=== PATIENT | male | born 1960 | race Caucasian/White ===

== ENCOUNTER → 2025-04-05 16:37 | Outpatient (REF) | payer OTHER, SELFPAY | LOC: RAD 16:37 | PROVIDERS: ATTENDING PHYSICIAN Surgery Vascular Surgery; FAMILY PHYSICIAN Student in an Organized Health Care Education/Training Program | DX: I73.9 Peripheral vascular disease, unspecified (principal) | CPT/HCPCS: 75635; Q9967 ==

== ENCOUNTER → 2025-04-08 14:03 | Outpatient (REF) | payer OTHER, SELFPAY | LOC: RAD 14:03 | PROVIDERS: ATTENDING PHYSICIAN Surgery Vascular Surgery; FAMILY PHYSICIAN Student in an Organized Health Care Education/Training Program | DX: I73.9 Peripheral vascular disease, unspecified (principal) | CPT/HCPCS: 93922 ==

== ENCOUNTER 2025-05-24 09:15 | Inpatient (IN) | payer OTHER, SELFPAY ==
[2025-05-20 09:30] VITALS: BMI 33.5
[2025-05-20 09:51] LABS: Hematocrit 51.8 % (39.0-52.0); Hemoglobin 17.2 g/dL (13.0-18.0); Mean Corp Hgb Conc. 33.2 g/dL (33.0-37.0); Mean Corpuscular Volume 94.4 fL (80.0-94.0); Nucleated Red Blood Cells % 0 % (-); Platelet Count 180 10^3/uL (130-400); Red Cell Dist. Width 13.9 % (11.5-14.5)
[2025-05-20 10:01] LABS: INR 0.95; PT 13.0 Sec (11.4-14.6)
[2025-05-20 10:03] LABS: APTT 30.7 Sec (23.4-35.0)
[2025-05-20 11:21] LABS: Blood Urea Nitrogen 16 mg/dl (9-20); Calcium 9.8 mg/dl (8.4-10.2); Carbon Dioxide 31 mmol/L (22-30); Chloride 105 mmol/L (98-107); Estimated Creatinine Clearance 124 ml/min; Glucose 105 mg/dl (70-99); Potassium 4.8 mmol/L (3.5-5.1); Sodium 141 mmol/L (135-145); eGFR > 60.00
[2025-05-24] VITALS (7 sets, daily range): BP systolic 128–154; BP diastolic 74–98; BMI 33.5; BMI 34.0
[2025-05-24] MEDS: PERIDEX 0.12% ORAL RINSE 15 ML PO (10:15)
[2025-05-24] MEDS: BACTROBAN NASAL 1 GRAM NASAL (10:15)
[2025-05-24] MEDS: NSS 500 IV (10:16)
--- NOTE | 2025-05-24 11:47 | W.SUR.PREOP ---
Pre-Operative Surgical Note
-
I have examined this patient prior to the performance of the scheduled procedure.
The patient's condition is unchanged from the time of the current History and
Physical and the patient is able to undergo the scheduled procedure.
[2025-05-24 15:59] LABS: ACT-LR - POC 353 Seconds (116-155)
[2025-05-24 16:55] LABS: ACT-LR - POC 237 Seconds (116-155)
[2025-05-24 18:50] LABS: Hematocrit 47.7 % (39.0-52.0); Hemoglobin 15.6 g/dL (13.0-18.0); Mean Corp Hgb Conc. 32.7 g/dL (33.0-37.0); Mean Corpuscular Volume 94.6 fL (80.0-94.0); Platelet Count 166 10^3/uL (130-400); Red Cell Dist. Width 13.6 % (11.5-14.5)
[2025-05-24 19:02] LABS: INR 0.95; PT 13.0 Sec (11.4-14.6)
[2025-05-24 19:03] LABS: APTT 31.4 Sec (23.4-35.0)
[2025-05-24 19:16] LABS: Blood Urea Nitrogen 14 mg/dl (9-20); Calcium 8.8 mg/dl (8.4-10.2); Carbon Dioxide 29 mmol/L (22-30); Chloride 106 mmol/L (98-107); Estimated Creatinine Clearance 124 ml/min; Glucose 133 mg/dl (70-99); Sodium 139 mmol/L (135-145); eGFR > 60.00
[2025-05-24 19:40] LABS: Potassium 4.8 mmol/L (3.5-5.1)
--- NOTE | 2025-05-24 19:50 | PTCARENOTE ---
Rec'd pt from PACU via bed on o2 4 liters nc & monitor, oriented to ICU routine, CHG bath done on adm, falt affect, cooperative, MSAS-0, B Linn, MAP MOUNTER aware of pts last drink on Sat; SR, R rad maliha w/ good wave form, flushes well,
zeroed, approx w/ cuff, Left fem ELODIA dressing intact, Left thigh TAYLOR A & TAYLOR B w/ sm amt ses drainage, TAYLOR A dsg w/ sm amt drainage noted on dsg- circled, bilat feet warm, good sensation, left pedal weakly palpable, other distal pulses normal, skin
warm/dry, O2 4 liters nc, sat 92, lungs decr,instructed on IS- reaches 1000, + bowel sounds, abd obese, round,no n/v, venu h20, thermister blum draining yellow urine
--- NOTE | 2025-05-24 19:53 | OR.RPT ---
Operative Report
Operative Report
Date of Operation: 05/24/2025
Pre Op Diagnosis:
1. [place] artery atherosclerosis with ischemic rest pain left lower extremity
2. Calcified peripheral arterial occlusive disease
3. Severe oxygen dependent COPD
Post Op Diagnosis:
1. [place] artery atherosclerosis with ischemic rest pain left lower extremity
2. Calcified peripheral arterial occlusive disease
3. Severe oxygen dependent COPD
Procedure:
1. Left common femoral artery and proximal superficial femoral artery endarterectomy with patch angioplasty using bovine pericardium
2. Intravascular lithotripsy to calcified left popliteal artery stenosis (6 mm x 80 mm E8)
3. Balloon angioplasty and drug-eluting stent placement to left popliteal artery (6 mm x 140 mm Zilver PTX; postdilated with 6 mm angioplasty balloon)
4. Rotational muscle flap using left sartorius muscle
Surgeon: Fabricio Andersen III, MD
Electrical Instrumentation Technician: Kin Rios MD, PGY5
Anesthesia: General
Complications: None
Estimated Blood Loss: 50 cc
History and Indications for Procedure: 64-year-old male with ischemic rest pain involving his left lower extremity. Cross-sectional imaging preoperatively demonstrated heavily calcified femoral occlusive disease.
Procedure in Detail: Albino Yu was correctly identified and placed supine on the operating table. After adequate induction of anesthesia, the abdomen, pelvis, and bilateral groins to the thighs were prepped and draped in usual sterile
fashion. Preoperative antibiotics were administered. A time-out procedure was performed with the nursing and anesthesia staff confirming the patient's identity as well as the nature and laterality of the procedure. I made a vertical incision over
the left groin. Electrocautery was used to dissect the subcutaneous tissue. Lymphatics were ligated and divided between ties and metal clips. Through a combination of sharp dissection and electrocautery, I identified the common femoral artery.
The common femoral artery was encircled with a vessel loop underneath the inguinal ligament. Dissection was then continued distally. The femoral bifurcation was identified as well as the proximal superficial femoral artery and profunda femoral
artery. The proximal superficial femoral artery was encircled with a vessel loop at the soft spot beyond the calcified plaque. The proximal superficial femoral artery and profunda femoral artery were encircled with vessel loops.
The patient was systemically heparinized. After confirming therapeutic ACT we proceeded with the endarterectomy. The proximal and distal vessel loops were secured. A Derra clamp was placed on the distal external iliac artery. An 11-blade and
Hargrove scissors were used to make and extend the arteriotomy on the common femoral artery. The arteriotomy was carried distally to the superficial femoral artery beyond the calcified plaque. The arteriotomy was extended up to the proximal common
femoral artery. An endarterectomy was performed in the standard fashion with a [place] elevator. The proximal extent of the plaque was transected and then additional elements of plaque were pulled out from the distal external iliac artery using
forceps and clamps. Plaque was everted from the origin of the profunda femoral artery. Excellent backbleeding from the profunda femoral artery was identified and the artery was flushed with heparinized saline solution. The distal end of the
plaque feathered at the proximal superficial femoral artery. A slight distal intimal flap was tacked down with a single interrupted 6-0 Prolene suture. The endarterectomy plane was then irrigated with heparinized saline solution and any loose
fronds of tissue were removed. I brought onto the field a precut 1 cm x 14 cm piece of bovine pericardium and this was used as a patch. The patch was then sewn in place using a running 5-0 Prolene suture. Prior to the completion of the
anastomosis, we allowed the arteries to forward and backbleed. The area under the patch was flushed with heparinized saline solution to remove any thrombus or debris. The anastomosis was then completed. The proximal clamp was removed and distal
vessel loops were then released. There was an excellent pulse that was easily palpable within the common femoral artery, proximal profunda femoral artery and proximal superficial femoral artery. The suture line was closely inspected for hemostasis
which was achieved.
I then punctured the patch in an antegrade fashion with a micropuncture needle. The microwire was advanced into the superficial femoral artery. A 6 Vietnamese sheath was then placed over the Bentson wire. An arteriogram was performed demonstrating
patent superficial femoral artery. There was a highly calcified plaque in the above-knee popliteal artery and focally behind the knee popliteal artery contributing to significant stenoses. I was able to cross both of these with a Glidewire and
Quickcross under roadmap guidance. The wire was then exchanged out for a 0.014 wire. Due to the heavily calcified nature of the popliteal artery disease and in an effort to modify the calcium to achieve maximum luminal gain with endovascular
intervention I elected to proceed with intravascular lithotripsy. A 6 mm x 80 mm Shockwave balloon was placed across the stenosis under roadmap guidance. Alternating rounds of lithotripsy pulse delivery at sub-nominal pressure and angioplasty at
nominal pressure was performed across the stenosis. In between rounds of pulse delivery and angioplasty the balloon was deflated and repositioned under roadmap guidance. All 400 pulses were delivered. Subsequent arteriogram demonstrated a
significantly improved result. Some areas of stenosis remained. I then brought into position a 6 mm x 140 mm Zilver PTX stent. This was positioned in the desired location in the popliteal artery and deployed. The stent was postdilated with a 6
mm angioplasty balloon. Completion arteriogram demonstrated an excellent technical result with a widely patent superficial femoral artery and popliteal artery stent. There was brisk flow through the stent. No significant residual stenosis was
identified. Three-vessel tibial artery runoff was identified distally.
Satisfied with this result we then concluded the endovascular portion of the procedure. The 6 Vietnamese sheath was removed from the patch. The puncture site was repaired primarily with a 5-0 Prolene suture. The suture line was then closely inspected
for hemostasis which was achieved. Protamine was administered.
I then identified the sartorius muscle within the wound bed. This was carefully exposed using electrocautery and sharp dissection. We exposed the muscle back to its insertion site on the anterior superior iliac spine. The muscle was healthy in
appearance. Using electrocautery I disconnected the muscle from its insertion at the ASIS. The muscle was then gently rotated over to cover the patch repair of the common femoral artery and superficial femoral artery. The wound was irrigated with
copious amounts of warm saline solution. Hemostasis was achieved in the wound bed. The sartorius muscle was then tacked down circumferentially to the surrounding tissue using interrupted 3-0 Vicryl sutures in a horizontal mattress fashion. A
Suresh drain was left in the sartorius bed and was brought out laterally on the thigh. This was secured in place of the skin with a nylon suture. An additional Suresh drain was left on top of the sartorius muscle and brought out through a more
medial thigh stab incision. This was secured in place at the skin level with a nylon suture. The wound was then closed in multiple layers and sterile dressings were applied.
The patient tolerated the procedure well and was taken to the recovery room in good condition. He had palpable pedal pulses in the left foot at the conclusion of the case.
Attestation: I was present and responsible for the entire procedure
Signed:
Fabricio Andersen III, MD
Vascular Surgery
[facility]
[2025-05-24 19:54] LABS: ALT (SGPT) 29 U/L (0-50); AST (SGOT) 33 U/L (17-59); Albumin 3.9 g/dl (3.5-5.0); Alkaline Phosphatase 82 U/L (38-126); Magnesium 2.1 mg/dl (1.6-2.3); Total Protein 6.5 g/dl (6.3-8.2)
[2025-05-24 20:06] LABS: Glucose - Point of Care 115 mg/dl (70-99)
[2025-05-24] MEDS: VENTOLIN NEBULES 2.5 MG INH (20:13)
[2025-05-24] MEDS: SYMBICORT 160/4.5 MCG INHALER 2 PUFF INH (20:13)
[2025-05-24] MEDS: NSS 1000 IV (20:25)
[2025-05-24] MEDS: PLAVIX 300 MG PO (20:26)
[2025-05-24] MEDS: LOW STRENGTH ASPIRIN 81 MG PO (20:26)
[2025-05-24] MEDS: INDERAL 10 MG PO (20:26)
[2025-05-24] MEDS: ROXICODONE 5 MG PO (21:22)
[2025-05-24] MEDS: SEROQUEL 50 MG PO (21:22)
--- NOTE | 2025-05-24 21:23 | PTCARENOTE ---
oxycodon 5mg po given for lwft groin pain
[2025-05-24] MEDS: HEPARIN 5000 UNITS SC (23:37)
[2025-05-25] VITALS (16 sets, daily range): BP systolic 104–127; BP diastolic 67–81; BMI 34.3
--- NOTE | 2025-05-25 | PTCARENOTE ---
sys reviewed, changes noted, TAYLOR drainage sanguinous
[2025-05-25 03:32] LABS: Hematocrit 43.3 % (39.0-52.0); Hemoglobin 14.3 g/dL (13.0-18.0); Mean Corp Hgb Conc. 33.0 g/dL (33.0-37.0); Mean Corpuscular Volume 93.3 fL (80.0-94.0); Platelet Count 150 10^3/uL (130-400); Red Cell Dist. Width 13.4 % (11.5-14.5)
[2025-05-25 03:43] LABS: INR 0.97; PT 13.2 Sec (11.4-14.6)
[2025-05-25 03:44] LABS: APTT 29.2 Sec (23.4-35.0)
[2025-05-25 03:52] LABS: Blood Urea Nitrogen 14 mg/dl (9-20); Calcium 8.3 mg/dl (8.4-10.2); Carbon Dioxide 29 mmol/L (22-30); Chloride 108 mmol/L (98-107); Estimated Creatinine Clearance > 125 ml/min; Glucose 117 mg/dl (70-99); Potassium 4.4 mmol/L (3.5-5.1); Sodium 141 mmol/L (135-145); eGFR > 60.00
[2025-05-25] MEDS: ROXICODONE 5 MG PO ×4 (04:03→23:56)
--- NOTE | 2025-05-25 04:04 | PTCARENOTE ---
sys reviewed, neuro vasc check intact, TAYLOR- B site w/ sang drainage on dsg, oxy 5 mg po given for left groin pain
[2025-05-25] MEDS: NSS 1000 IV (07:34)
[2025-05-25] MEDS: SYMBICORT 160/4.5 MCG INHALER 2 PUFF INH ×2 (07:36→20:17)
[2025-05-25] MEDS: VENTOLIN NEBULES 2.5 MG INH (07:36)
[2025-05-25] MEDS: SPIRIVA RESPIMAT 2.5 MCG 2 PUFF INH (07:36)
--- NOTE | 2025-05-25 07:37 | CON.INTV ---
Consultation
Consultation Request
Date/Time Consultation Requested: 05/25/2025-7 AM
Date/Time Consultation Performed: 05/25/2025-7:30 AM
Requesting Provider: Hospitalist
Performing Provider: Dr. Guillaume
Reason for Consultation: Postoperative critical care management
Medical History
-
Chief Complaint: PAD
History of Present Illness:
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
05/25/2025.Patient is seen postoperatively. He denies any shortness of breath at rest, chest pain, chest tightness, productive cough, abdominal pain, and his legs feel much improved. He has good pulses and according to his the color is never
looked better. Uses oxygen at home including a portable oxygen concentrator.
Past Medical History
Past Medical History: None (COPD-stage IV on chronic oxygen-Dr. Carbajal. PAD. Pulm hypertension. Atrial fibrillation. Alcohol use disorder.)
Social History
Tobacco: Former Smoker ([id number] quit 03/2025)
Alcohol: Chronic Alcoholic
Drug: None
Personal:
Living: With Family
Occupational Exposures: No known asbestos exposure
Environmental Exposures: No known tuberculosis exposure
Family History
Family History: Reviewed & Not Pertinent (Father-CAD and COPD. Mother colon cancer)
Allergies / Home Medications
Allergies
Allergy/AdvReac Type Severity Reaction Status Date / Time
No Known Allergies Allergy Unverified 05/20/25 08:07
Home Medications
�Medication �Instructions �Recorded �Confirmed �Last Taken �Type
albuterol sulfate 90 mcg/actuation 2 inh inhalation Q4H PRN SOB 05/19/25 05/24/25 05/23/25 14:00 History
aerosol inhaler
apixaban 5 mg tablet (Eliquis) 5 mg PO BID Blood Clot 05/19/25 05/24/25 05/21/25 20:00 History
Prevention/Tx
budesonide 160 mcg-glycopyr 9 2 inh inhalation BID COPD 05/19/25 05/24/25 05/23/25 History
mcg-formot 4.8 mcg/actuation HFA
inhaler (Breztri Aerosphere)
cariprazine 1.5 mg capsule 1.5 mg PO HS Mental Health/Anxiety 05/19/25 05/20/25 05/23/25 20:00 History
(Vraylar)
ensifentrine 3 mg/2.5 mL 2.5 ml inhalation BID COPD 05/19/25 05/24/25 05/24/25 06:00 History
suspension for nebulization
(Ohtuvayre)
folic acid 1 mg tablet 1 mg PO DAILY Supplement 05/19/25 05/24/25 05/21/25 09:00 History
furosemide 20 mg tablet 20 mg PO DAILY Fluid 05/19/25 05/24/25 05/23/25 09:00 History
Retention/Swelling
multivitamin 1 tab PO DAILY Supplement 05/19/25 05/24/25 05/21/25 09:00 History
quetiapine 50 mg tablet 50 mg PO HS Mental Health/Anxiety 05/19/25 05/24/25 05/23/25 20:00 History
venlafaxine 150 mg 150 mg PO DAILY Mental 05/19/25 05/24/25 05/24/25 06:00 History
capsule,extended release 24 hr Health/Anxiety
albuterol sulfate 2.5 mg/3 mL 2.5 mg inhalation BID COPD 05/20/25 05/24/25 05/24/25 06:00 History
(0.083 %) solution for nebulization
cholecalciferol (vitamin D3) 50 50 mcg PO DAILY Supplement 05/20/25 05/24/25 05/21/25 09:00 History
mcg (2,000 unit) capsule (Vitamin
D3)
pravastatin 10 mg tablet 10 mg PO DAILY High Cholesterol 05/20/25 05/20/25 05/24/25 06:00 History
propranolol 10 mg tablet 10 mg PO BID Tremors 05/20/25 05/20/25 05/23/25 09:00 History
thiamine HCl (vitamin B1) 100 mg 100 mg PO DAILY Supplement 05/20/25 05/24/25 05/21/25 09:00 History
tablet
Cannabis - Medical 1 puff inhalation HSPRN PRN 05/24/25 05/24/25 05/23/25 20:00 History
sleep/anxiety
Review of Systems
-
Unable to Obtain full review of systems at this time due to: Other (Per HPI)
Vitals / Labs / Diagnostic Testing
Vital Signs
Temp Pulse Resp BP Pulse Ox
97.4 F 55 15 127/81 96
05/25/25 07:21 05/25/25 06:00 05/25/25 06:00 05/25/25 00:00 05/25/25 06:00
Lab Data
05/25/25 03:22
05/25/25 03:22
Laboratory Results
05/24/25 05/25/25
18:42 03:22
PT 13.0 13.2
INR 0.95 0.97
APTT 31.4 29.2
Diagnostic Testing:
Physical Exam
-
Exam:
Well-nourished and well-developed in no apparent distress
HEENT-atraumatic, normocephalic
Neck-supple, no JVD, no bruit
Heart-regular rate and rhythm-no murmurs, rubs or gallops
Chest with diminished breath sounds, prolonged expiratory time, no wheezes or crackles
Back without tenderness
Abdomen-soft, nontender, nondistended, no hepatosplenomegaly
Extremities-no cyanosis, clubbing, edema and good peripheral pulses
Integument-intact, no rashes, lesions or ecchymosis
Neurology-alert and oriented, nonfocal motor and sensory exam
Assessment
-
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
05/25/2025.Patient is seen postoperatively.
Severe symptomatic PAD
Status post-Left common femoral artery and proximal superficial femoral artery endarterectomy with patch angioplasty, intravascular lithotripsy to left popliteal artery stenosis, balloon angioplasty and drug-eluting stent to left popliteal artery,
rotational muscle flap using left sartorius muscle-Dr. Andersen 05/24/2025
Mild hyperglycemia
Conditions present prior to admission:
COPD-stage IV on chronic oxygen-Dr. Carbajal.
PAD.
Pulm hypertension.
Atrial fibrillation.
Alcohol use disorder.
Plan
Postoperative surgical intensive care unit monitoring
Supplemental oxygen as needed
Incentive spirometry
Aspiration precautions
Neuro and vascular checks per protocol
Monitor blood pressure/perfusion pressures and pulses closely
Vascular surgery following-correspondence and operative notes reviewed
Follow MSAS
Alcohol withdrawal treatment protocol if needed
DVT prophylaxis
Early nutrition
Early mobilization
Above recommendations were reviewed with who was present during interview and exam.
The patient has advanced COPD, quit smoking 2 months ago, follows Dr. Carbajal and maintained on Breztri, Albuterol, Ohtuvayre and O2- Follow-up as an outpatient
Critical care statement: A total of 55 minutes of critical care time was provided for this patient today. This includes management of unstable vital signs, evaluation of the patient at bedside, reviewing the patient's pertinent medical records
including radiographs, microbiology, laboratory evaluations, and discussion with primary team, consultants, pharmacy, nutrition, physical therapy, case management, charge nurse, critical care nursing, and respiratory therapy.
Diagnostic data:
Chest x-ray 05/24/2025-NAD
[2025-05-25] MEDS: EFFEXOR XR 150 MG PO (07:44)
[2025-05-25] MEDS: VITAMIN D3 (cholecalciferol) 50 MCG PO (07:45)
[2025-05-25] MEDS: THERAGRAN 1 TABLET PO (07:45)
[2025-05-25] MEDS: LOW STRENGTH ASPIRIN 81 MG PO (07:45)
[2025-05-25] MEDS: VITAMIN B1 100 MG PO (07:45)
[2025-05-25] MEDS: INDERAL 10 MG PO ×2 (07:45→19:35)
[2025-05-25] MEDS: HEPARIN 5000 UNITS SC ×3 (07:46→23:36)
[2025-05-25] MEDS: PLAVIX 75 MG PO (07:46)
--- NOTE | 2025-05-25 07:54 | W.PN.VS ---
Addendum entered and electronically signed by Fabricio Andersen III, MD 05/25/25 13:26:
This patient was seen and examined in collaboration with THOMAS Noriega. I agree with the history and physical exam as well as the assessment and plan.
Signed:
Fabricio Andersen III, MD
Vascular Surgery
[facility]
Original Note:
Today's Communication / Plan
-
Seen and assessed with Dr. Andersen
Assessment/Plan
-
Postop day 1 Left common femoral artery and proximal superficial femoral artery endarterectomy with patch angioplasty using bovine pericardium
Intravascular lithotripsy to calcified left popliteal artery stenosis (6 mm x 80 mm E8)
Balloon angioplasty and drug-eluting stent placement to left popliteal artery (6 mm x 140 mm Zilver PTX; postdilated with 6 mm angioplasty balloon)
Rotational muscle flap using left sartorius muscle
Plan:
DC A-line
Keep Andersen catheter
DC IV fluids
Continue bedrest for 48 hours
Hold Eliquis for now
We will change dressing tomorrow
Continue TAYLOR drains today
Subjective Data
-
Date of Service: May 25, 2025
Patient seen at bedside this a.m. with his at bedside. Patient currently receiving scheduled breathing treatment. Patient states his breathing feels to be at his baseline. No complaints at this time. No events overnight.
Objective Data
-
Vital Signs
Temp Pulse Resp BP Pulse Ox
97.4 F 57 14 127/81 97
05/25/25 07:21 05/25/25 07:40 05/25/25 07:40 05/25/25 00:00 05/25/25 07:40
Intake and Output
05/24/25 05/25/25 05/26/25
06:59 06:59 06:59
Intake Total 1160 / 1160
Output Total 672 / 672
Balance 488 / 488
Intake:
Oral fluids 360 / 360
IV fluids (Total) 800 / 800
Nss 1,000 ml @ 80 mls/hr IV . 800 / 800
[id number] SOPHY Rx#:[id number]
Output:
Drain Output (Total)
Left Upper Leg Kiko-Ferreira A
Left Upper Leg Kiko-Ferreira B
Urine, Andersen 650 / 650
Lab Results
05/25/25 03:22
05/25/25 03:22
Calcium 8.3 mg/dl (8.4-10.2) L 05/25/25 03:22
Phosphorus 3.0 mg/dl (2.5-4.5) 05/24/25 18:42
Magnesium 2.1 mg/dl (1.6-2.3) 05/24/25 18:42
Total Bilirubin 1.2 mg/dl (0.2-1.3) 05/24/25 18:42
AST 33 U/L (17-59) 05/24/25 18:42
ALT 29 U/L (0-50) 05/24/25 18:42
Alkaline Phosphatase 82 U/L (38-126) 05/24/25 18:42
Total Protein 6.5 g/dl (6.3-8.2) 05/24/25 18:42
Albumin 3.9 g/dl (3.5-5.0) 05/24/25 18:42
Physical Exam
-
AO x 3
No tachypnea on 2 L nasal cannula
No tachycardia
Abdomen soft
Groin site clean, dry, intact, soft, flat
TAYLOR drains intact with minimal output
Foot warm and pink with palpable pulse
--- NOTE | 2025-05-25 08:00 | PTCARENOTE ---
Received patient from overnight stocker. Dr. Blum at team are in to assess patient. Patient is flat, AAOx4, present at bedside. Patient to not sit up further than 30%, is to remain bedrest till tomorrow afternoon and will discontinue the A-line
and IV fluids. He is sinus hannah/sinus rhythm on monitor. Has palpable pulses Was on 4L nasal cannula, now on 2L. 94-95%. Patient had some scattered rhonchi and generally diminished, quit smoking 2 months ago. He is ordered low cholesterol diet,
and blum catheter to remain today. Left leg incision intact, has two TAYLOR drains that have drainage on dressings, unchanged from prior shift. Will review orders, patient and have no questions and verbalize understanding of plan of care.
[2025-05-25] MEDS: TYLENOL 650 MG PO (09:12)
--- NOTE | 2025-05-25 12:41 | CM ---
Initial assessment completed with patient who lives with his in a 3 story plus basement duplex home with B/B on 2nd and 8 steps to enter. 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 He does not drive. Has a W/CH and RW in the home but
does not use. Does use O2 continuously @ 2L. Has concentrator, Inogen and Large tank. No in-home services. Does have a HC-POA. No service. PCP is Dr. Steven Bolton and Pharmacy is [facility] in [place]. Discharge POC: requesting PT consult.
13 steps to 2nd floor. No bathroom on 1st.
MD requesting CM consult for ETOH use/abuse. Discussed with patient. He said he is not working and only drinks 5-6 beers per day. He does not get intoxicated. He does not feel he needs the services of [facility]. He is aware that [facility] is
available if he changes his mind. Expressed understanding.
--- NOTE | 2025-05-25 12:51 | PTCARENOTE ---
drainage was noted on left upper leg. mistyer texted vascular team. Reinforced dressing. ELODIA drain still blinking green. neurovascular checks remain unchanged, WNL 5mg Oxycodone mg given for pain, CHG bath completed.
[2025-05-25] MEDS: NON-FORMULARY ITEM INH ×2 (13:55)
[2025-05-25] MEDS: NON-FORMULARY ITEM PO (14:06)
[2025-05-25] MEDS: PRAVACHOL 10 MG PO (19:36)
[2025-05-25] MEDS: ATIVAN 1 MG PO (19:43)
--- NOTE | 2025-05-25 19:45 | PTCARENOTE ---
Rec'd pt resting in bed, on bedrest, flat affect, notable tremors & diaphoresis, MSAS 5- ativan 1mg po given at 1945; oxycodone 5mg po given at 1935 for left groin pain, MESSER, cooperative, SR/ Sinus hannah, bp stable, + pulses, skin warm/dry, Left fem
ELODIA dsg intact, TAYLOR A & B w/ sang fluid, stripped per order, O2 2 liters nc, lungs decr in bases, enc to use IS- reaches 1000, sat 94, + bowel sounds, no bm, abd obese, round, no n/v venu diet, thermister blum draining yellow uirne
[2025-05-25] MEDS: VENTOLIN NEBULES INH (20:13)
[2025-05-25] MEDS: NON-FORMULARY ITEM 2.5 ML INH (20:16)
[2025-05-25] MEDS: SEROQUEL 50 MG PO (21:41)
[2025-05-25] MEDS: NON-FORMULARY ITEM 1.5 MG PO (21:41)
[2025-05-26] VITALS (24 sets, daily range): BP systolic 102–130; BP diastolic 68–95; BMI 34.2
--- NOTE | 2025-05-26 00:10 | PTCARENOTE ---
sys reviewed, changes noted, inc of mod amt stool, tonya care given, CHG bath done, pulses unch, Oxycodone 5mg po given for pain
[2025-05-26 03:20] LABS: Hematocrit 41.5 % (39.0-52.0); Hemoglobin 13.7 g/dL (13.0-18.0); Mean Corp Hgb Conc. 33.0 g/dL (33.0-37.0); Mean Corpuscular Volume 94.5 fL (80.0-94.0); Platelet Count 145 10^3/uL (130-400); Red Cell Dist. Width 13.4 % (11.5-14.5)
[2025-05-26 03:42] LABS: Blood Urea Nitrogen 13 mg/dl (9-20); Calcium 8.8 mg/dl (8.4-10.2); Carbon Dioxide 32 mmol/L (22-30); Chloride 109 mmol/L (98-107); Estimated Creatinine Clearance > 125 ml/min; Glucose 92 mg/dl (70-99); Potassium 3.9 mmol/L (3.5-5.1); Sodium 139 mmol/L (135-145); eGFR > 60.00
[2025-05-26] MEDS: ROXICODONE 5 MG PO ×4 (03:46→19:43)
--- NOTE | 2025-05-26 03:47 | PTCARENOTE ---
sys reviewed, oxycodone 5mg po given for pain
--- NOTE | 2025-05-26 05:00 | W.PN.UPDATE ---
Addendum entered and electronically signed by THOMAS Shanks 05/26/25 05:47:
DELETE NOTED Wrong Patient entry�
Original Note:
Update Note
Progress Note Update
Patient transfer for septic picture. �Patient started on levophed up to 12 mcg and vasopressin if needed. Electrolytes repleted and sodium bicarbonates drip started. Repeat blood cultures ordered. �Lactate is 5.3 and 5.5. �Hypoglycemia noted ordered
frequent accu checks and D50 PRN. �HGB 7.8
[2025-05-26] MEDS: SYMBICORT 160/4.5 MCG INHALER 2 PUFF INH ×2 (07:21→20:51)
[2025-05-26] MEDS: SPIRIVA RESPIMAT 2.5 MCG 2 PUFF INH (07:21)
[2025-05-26] MEDS: NON-FORMULARY ITEM 2.5 ML INH ×2 (07:25→20:46)
[2025-05-26] MEDS: VITAMIN B1 100 MG PO (07:28)
[2025-05-26] MEDS: LOW STRENGTH ASPIRIN 81 MG PO (07:28)
[2025-05-26] MEDS: PLAVIX 75 MG PO (07:28)
[2025-05-26] MEDS: HEPARIN 5000 UNITS SC ×3 (07:28→23:45)
[2025-05-26] MEDS: VITAMIN D3 (cholecalciferol) 50 MCG PO (07:28)
[2025-05-26] MEDS: EFFEXOR XR 150 MG PO (07:28)
[2025-05-26] MEDS: THERAGRAN 1 TABLET PO (07:28)
[2025-05-26] MEDS: INDERAL 10 MG PO ×2 (07:28→19:35)
--- NOTE | 2025-05-26 07:29 | W.PN.VS ---
Today's Communication / Plan
-
Plan reviewed with attending.
Assessment/Plan
-
Postop day 2 Left common femoral artery and proximal superficial femoral artery endarterectomy with patch angioplasty using bovine pericardium
Intravascular lithotripsy to calcified left popliteal artery stenosis (6 mm x 80 mm E8)
Balloon angioplasty and drug-eluting stent placement to left popliteal artery (6 mm x 140 mm Zilver PTX; postdilated with 6 mm angioplasty balloon)
Rotational muscle flap using left sartorius muscle
Plan:
Keep Andersen catheter, plan for d/c tomorrow 6am
Continue bedrest until tomorrow am, plan for out of bed to chair early am
Restart Eliquis tomorrow am dose
continue brown and TAYLOR dressing today, plan for change tomorrow
Continue TAYLOR drain
Continue I and O
Continue to encourage incentive spirometry
Continue GI DVT prophylaxis
Remains ICU care today
Subjective Data
-
Date of Service: May 26, 2025
Pt seen and examined. He is awake and alert reporting managed pain on prescribed pain regimen. Tolerating PO diet. Denies nausea, vomiting, fever, chills.
Objective Data
-
Vital Signs
Temp Pulse Resp BP Pulse Ox
98.8 F 64 16 127/82 94
05/26/25 07:27 05/26/25 07:26 05/26/25 07:26 05/26/25 06:00 05/26/25 07:26
Intake and Output
05/25/25 05/26/25 05/27/25
06:59 06:59 06:59
Intake Total 1160 / 1240 1620 / 1620
Output Total 672 / 712 1345 / 1345
Balance 488 / 528 275 / 275
Intake:
Oral fluids 360 / 360 1300 / 1300
IV fluids (Total) 800 / 880 320 / 320
Nss 1,000 ml @ 80 mls/hr IV . 800 / 880 320 / 320
[id number] SOPHY Rx#:[id number]
Output:
Drain Output (Total) 90
Left Upper Leg Kiko-Ferreira A 40 / 40
Left Upper Leg Kiko-Ferreira B 50 / 50
Urine, Andersen 650 / 690 1255 / 1255
Lab Results
05/26/25 03:01
05/26/25 03:01
Calcium 8.8 mg/dl (8.4-10.2) 05/26/25 03:01
Phosphorus 3.0 mg/dl (2.5-4.5) 05/24/25 18:42
Magnesium 2.1 mg/dl (1.6-2.3) 05/24/25 18:42
Total Bilirubin 1.2 mg/dl (0.2-1.3) 05/24/25 18:42
AST 33 U/L (17-59) 05/24/25 18:42
ALT 29 U/L (0-50) 05/24/25 18:42
Alkaline Phosphatase 82 U/L (38-126) 05/24/25 18:42
Total Protein 6.5 g/dl (6.3-8.2) 05/24/25 18:42
Albumin 3.9 g/dl (3.5-5.0) 05/24/25 18:42
Physical Exam
-
AO x 3
No tachypnea on 2 L nasal cannula
No tachycardia
Abdomen soft
Groin site dry, intact, soft, flat
TAYLOR drains intact with minimal output, scant serosanguineous drainage at TAYLOR gauze pads reinforced, will change tomorrow to not jeopardize integrity of brown site
Foot warm and pink with palpable pulse
--- NOTE | 2025-05-26 07:37 | W.PN.INTV ---
Today's Communication / Plan
Recommendations
Maintain bedrest
Restart Eliquis tomorrow
Continue nebulizers
Physical therapy/Occupational Therapy evaluation tomorrow- would prefer rehab stent prior to discharge home
Assessment
-
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
05/25/2025.Patient is seen postoperatively.
Severe symptomatic PAD
Status post-Left common femoral artery and proximal superficial femoral artery endarterectomy with patch angioplasty, intravascular lithotripsy to left popliteal artery stenosis, balloon angioplasty and drug-eluting stent to left popliteal artery,
rotational muscle flap using left sartorius muscle-Dr. Andersen 05/24/2025
Mild hyperglycemia
Conditions present prior to admission:
COPD-stage IV on chronic oxygen-Dr. Carbajal.
PAD.
Pulm hypertension.
Atrial fibrillation.
Alcohol use disorder.
Plan
The patient continues to be monitored closely in the surgical intensive care unit
Supplemental oxygen as needed
Incentive spirometry encouraged
Aspiration precautions
Nebulizers as needed
Continue inhalers
Neuro and vascular checks per protocol
Monitor blood pressure/perfusion pressures and pulses closely
Vascular surgery following-correspondence and operative notes reviewed-keep Andersen catheter in for 24 hours
Continue bedrest until 05/27/2025
Restart Eliquis 05/27/2025
Follow MSAS
Alcohol withdrawal treatment protocol if needed-no obvious signs of withdrawal
DVT prophylaxis
Early nutrition
Early mobilization
PT/OT evaluation 05/27/2025
Above recommendations were reviewed with who was present during interview and exam.
The patient has advanced COPD, quit smoking 2 months ago, follows Dr. Carbajal and maintained on Breztri, Albuterol, Ohtuvayre and O2- Follow-up as an outpatient
Critical care statement: A total of 38 minutes of critical care time was provided for this patient today. This includes management of unstable vital signs, evaluation of the patient at bedside, reviewing the patient's pertinent medical records
including radiographs, microbiology, laboratory evaluations, and discussion with primary team, consultants, pharmacy, nutrition, physical therapy, case management, charge nurse, critical care nursing, and respiratory therapy.
Diagnostic data:
Chest x-ray 05/24/2025-NAD
Subjective Dataa
Subjective Data
Date of Service:
Date of Service: May 26, 2025
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
Subjective:
no complaints overnight, no increased shortness of breath, no chest pain, chest congestion, increased wheezing, abdominal pain, or leg pain
Review of Systems
General: Other ( Per HPI)
Objective Data
Data Reviewed
Vital Signs / I&O / Oxygen:
Vital Signs
Temp Pulse Resp BP Pulse Ox
98.8 F 64 16 127/82 94
05/26/25 07:27 05/26/25 07:26 05/26/25 07:26 05/26/25 06:00 05/26/25 07:26
Intake and Output
05/25/25 05/26/25 05/27/25
06:59 06:59 06:59
Intake Total 1160 / 1240 1620 / 2070 450 / 450
Output Total 672 / 712 1345 / 1385 40 / 40
Balance 488 / 528 275 / 685 410 / 410
SaO2 94
Nasal Cannula flow liters per 2
minute
Physical Exam
General: Respiratory Distress (n) and Comfortable
HEENT: Normocephalic, Anicteric and Moist Mucous Membranes
Cardiovascular: Regular Rhythm and Murmur
Respiratory: Wheeze ( few expiratory), Rhonchi ( expiratory), Non-Labored Respirations and Accessory Resp Muscle Use (n)
GI: Soft, Non Distended and Non Tender
Neurology: Awake, Alert and No Motor Deficits
Skin: Warm, Good Color, Cyanosis (n) and Jaundice (n)
Labs/Micro/Reports
Lab Data
05/26/25 03:01
05/26/25 03:01
--- NOTE | 2025-05-26 08:00 | PTCARENOTE ---
No change in patient's assessment. patient had some elevated msas last night, was given ativan. MSAS is 3 for me this morning. he is AAOx3, at bedside, remains on 2L NC, using IS at bedside. Is sinus rhythm on monitor. Ordered cholesterol
lowering regular diet. Andersen draining yellow urine. Patient rates pain at 4:10 in left leg. Will review orders.
[2025-05-26] MEDS: PROTONIX 40 MG PO (08:52)
--- NOTE | 2025-05-26 09:00 | PTCARENOTE ---
Patient to remain on bedrest today. 48 hrs post procedure. Drains to be stripped q shift. blum catheter to remain till tomorrow, will consult PT OT. pulses still palpable.
--- NOTE | 2025-05-26 14:52 | PTCARENOTE ---
no change in patient's assessment. patient to remain bed rest today. blum to be discontinued tomorrow morning
--- NOTE | 2025-05-26 15:28 | CM ---
D/C blum in am 05/27/25, TAYLOR drain, OOB to chair in am 05/27/25. Discharge POC: Awaiting therapy evaluation and recommendations when patient is medically cleared for PT/OT.
[2025-05-26] MEDS: PRAVACHOL 10 MG PO (19:35)
--- NOTE | 2025-05-26 20:41 | PTCARENOTE ---
Pt received start of shift, HR SR on telemetry. AAOx4. MSAS currently 3. Pulses palpable b/l LE. 2L 92-95%. Moist occasionally productive cough. Andersen draining clear yellow urine. Pain rated 6/10 - PRN Marta admiistered (see MAR). TAYLOR A+B draining
sanguineous drainage. Yung dressing in place.
[2025-05-26] MEDS: SEROQUEL 50 MG PO (22:24)
[2025-05-26] MEDS: NON-FORMULARY ITEM 1.5 MG PO (22:24)
[2025-05-27] VITALS (27 sets, daily range): BP systolic 106–141; BP diastolic 67–95; PULSE 66–71; O2SAT 93–95; BMI 34.2
--- NOTE | 2025-05-27 | PTCARENOTE ---
All systems reassessed, no change in assessment
[2025-05-27 04:00] LABS: Hematocrit 40.5 % (39.0-52.0); Hemoglobin 13.6 g/dL (13.0-18.0); Mean Corp Hgb Conc. 33.6 g/dL (33.0-37.0); Mean Corpuscular Volume 92.5 fL (80.0-94.0); Platelet Count 159 10^3/uL (130-400); Red Cell Dist. Width 13.2 % (11.5-14.5)
[2025-05-27 04:20] LABS: Blood Urea Nitrogen 11 mg/dl (9-20); Calcium 8.8 mg/dl (8.4-10.2); Carbon Dioxide 29 mmol/L (22-30); Chloride 104 mmol/L (98-107); Estimated Creatinine Clearance > 125 ml/min; Glucose 97 mg/dl (70-99); Potassium 4.1 mmol/L (3.5-5.1); Sodium 136 mmol/L (135-145); eGFR > 60.00
--- NOTE | 2025-05-27 06:30 | PTCARENOTE ---
All systems reassessed. TAYLOR drains continue to drain sanguineous drainage. Pulses remain palpable b/l LE. Pt states numbness/tingling in L foot no longer present. Andersen removed per order.
[2025-05-27] MEDS: SYMBICORT 160/4.5 MCG INHALER 2 PUFF INH ×2 (07:34→21:18)
[2025-05-27] MEDS: SPIRIVA RESPIMAT 2.5 MCG 2 PUFF INH (07:34)
--- NOTE | 2025-05-27 07:37 | W.PN.VS ---
Addendum entered and electronically signed by Fabricio Andersen III, MD 05/27/25 11:34:
This patient was seen and examined in collaboration with THOMAS Noriega. I agree with the history and physical exam as well as the assessment and plan. I have the following additions:
Overall he is doing very well
Stable from a respiratory perspective
Dressings changed this morning-left groin clean and dry
TAYLOR drains serosanguineous
Palpable left dorsalis pedis pulse and foot is pink/warm
Out of bed
Physical therapy
Keep JPs
Okay to initiate oral anticoagulation today along with antiplatelet monotherapy
Continue ICU monitoring
Signed:
Fabricio Andersen III, MD
Vascular Surgery
[facility]
Original Note:
Today's Communication / Plan
-
Seen and assessed with Dr. Andersen
Assessment/Plan
-
Postop day 3 Left common femoral artery and proximal superficial femoral artery endarterectomy with patch angioplasty using bovine pericardium
Intravascular lithotripsy to calcified left popliteal artery stenosis (6 mm x 80 mm E8)
Balloon angioplasty and drug-eluting stent placement to left popliteal artery (6 mm x 140 mm Zilver PTX; postdilated with 6 mm angioplasty balloon)
Rotational muscle flap using left sartorius muscle
Plan:
DC Ganesh
Out of bed/ambulate
Physical therapy
continue TAYLOR drains
I will replace brown today
Continue I and O
Continue to encourage incentive spirometry
DC aspirin and replaced with Eliquis today (continue Plavix)
Remains ICU care today
Subjective Data
-
Date of Service: May 27, 2025
Patient seen at bedside this a.m. with Dr. Andersen. No events overnight. No complaints at this time.
Objective Data
-
Vital Signs
Temp Pulse Resp BP Pulse Ox
99.7 F 76 14 128/76 91
05/27/25 03:05 05/27/25 07:00 05/27/25 07:00 05/27/25 07:00 05/27/25 07:00
Intake and Output
05/26/25 05/27/25 05/28/25
06:59 06:59 06:59
Intake Total 1620 / 2070 1380 / 1380 0 / 0
Output Total 1345 / 1385 1390 / 1390
Balance 275 / 685 -10 / -10 0 / 0
Intake:
Oral fluids 1300 / 1750 1380 / 1380 0 / 0
IV fluids (Total) 320 / 320
Nss 1,000 ml @ 80 mls/hr IV . 320 / 320
[id number] SOPHY Rx#:[id number]
Output:
Drain Output (Total) 90 / 90 110 / 110
Left Upper Leg Kiko-Ferreira A 40 / 40 60 / 60
Left Upper Leg Kiok-Ferreira B 50 / 50 50 / 50
Urine, Andersen 1255 / 1295 1280 / 1280
Lab Results
05/27/25 03:41
05/27/25 03:41
Calcium 8.8 mg/dl (8.4-10.2) 05/27/25 03:41
Phosphorus 3.0 mg/dl (2.5-4.5) 05/24/25 18:42
Magnesium 2.1 mg/dl (1.6-2.3) 05/24/25 18:42
Total Bilirubin 1.2 mg/dl (0.2-1.3) 05/24/25 18:42
AST 33 U/L (17-59) 05/24/25 18:42
ALT 29 U/L (0-50) 05/24/25 18:42
Alkaline Phosphatase 82 U/L (38-126) 05/24/25 18:42
Total Protein 6.5 g/dl (6.3-8.2) 05/24/25 18:42
Albumin 3.9 g/dl (3.5-5.0) 05/24/25 18:42
Physical Exam
-
AO x 3
No tachypnea on 2 L nasal cannula
No tachycardia
Abdomen soft
Groin site dressing was removed, staple line intact and well-approximated, no drainage noted
TAYLOR drains intact with minimal output, 25 cc and 30 cc
Foot warm and pink with palpable pulse
[2025-05-27] MEDS: NON-FORMULARY ITEM 2.5 ML INH ×2 (07:38→21:18)
--- NOTE | 2025-05-27 07:43 | W.PN.INTV ---
Today's Communication / Plan
Recommendations
Increase activity-out of bed
PT/OT
Eliquis restarted
Continue inhalers and nebulizers
Assessment
-
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
05/25/2025.Patient is seen postoperatively.
Severe symptomatic PAD
Status post-Left common femoral artery and proximal superficial femoral artery endarterectomy with patch angioplasty, intravascular lithotripsy to left popliteal artery stenosis, balloon angioplasty and drug-eluting stent to left popliteal artery,
rotational muscle flap using left sartorius muscle-Dr. Andersen 05/24/2025
Mild hyperglycemia
Conditions present prior to admission:
COPD-stage IV on chronic oxygen-Dr. Carbajal.
PAD.
Pulm hypertension.
Atrial fibrillation.
Alcohol use disorder.
Plan
Hemodynamically and neurovascularly intact
Continue supplemental oxygen as needed
Incentive spirometry encouraged
Aspiration precautions
Nebulizers as needed
Symbicort and Spiriva continue
Ohyuvayre Nebulizer continues
Continue inhalers
Neuro and vascular checks per protocol
Monitor blood pressure/perfusion pressures and pulses closely
Vascular surgery following-correspondence and operative notes reviewed-keep Andersen catheter in for 24 hours
Begin out of bed 05/27/2025
Eliquis restart 05/27/2025
PT/OT consult
Follow MSAS
Alcohol withdrawal treatment protocol if needed-no obvious signs of withdrawal
DVT prophylaxis-Eliquis restarted
GI prophylaxis-on pantoprazole
Continue nutrition
Above recommendations were reviewed with who was present during interview and exam.
The patient has advanced COPD, quit smoking 2 months ago, follows Dr. Carbajal and maintained on Breztri, Albuterol, Ohtuvayre and O2- Follow-up as an outpatient
Critical care statement: A total of 35 minutes of critical care time was provided for this patient today. This includes management of unstable vital signs, evaluation of the patient at bedside, reviewing the patient's pertinent medical records
including radiographs, microbiology, laboratory evaluations, and discussion with primary team, consultants, pharmacy, nutrition, physical therapy, case management, charge nurse, critical care nursing, and respiratory therapy.
Diagnostic data:
Chest x-ray 05/24/2025-NAD
Subjective Dataa
Subjective Data
Date of Service:
Date of Service: May 27, 2025
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
Subjective:
had a good night, no complaints of shortness of breath, chest pain, productive cough, abdominal pain and his legs feel good
Review of Systems
General: Other ( per HPI)
Objective Data
Data Reviewed
Vital Signs / I&O / Oxygen:
Vital Signs
Temp Pulse Resp BP Pulse Ox
99.7 F 77 18 128/76 92
05/27/25 03:05 05/27/25 07:35 05/27/25 07:35 05/27/25 07:00 05/27/25 07:35
Intake and Output
05/26/25 05/27/25 05/28/25
06:59 06:59 06:59
Intake Total 1620 / 2070 1380 / 1380 0 / 0
Output Total 1345 / 1385 1390 / 1390
Balance 275 / 685 -10 / -10 0 / 0
SaO2 92
Nasal Cannula flow liters per 2
minute
Physical Exam
General: Respiratory Distress (n) and Comfortable
HEENT: Normocephalic, Anicteric and Moist Mucous Membranes
Cardiovascular: Regular Rhythm and Murmur
Respiratory: Wheeze ( few expiratory), Rhonchi ( expiratory), Non-Labored Respirations and Accessory Resp Muscle Use (n)
GI: Soft, Non Distended and Non Tender
Neurology: Awake, Alert and No Motor Deficits
Skin: Warm, Good Color, Cyanosis (n) and Jaundice (n)
Labs/Micro/Reports
Lab Data
05/27/25 03:41
05/27/25 03:41
[2025-05-27] MEDS: PLAVIX 75 MG PO (07:49)
[2025-05-27] MEDS: VITAMIN D3 (cholecalciferol) 50 MCG PO (07:50)
[2025-05-27] MEDS: EFFEXOR XR 150 MG PO (07:50)
[2025-05-27] MEDS: VITAMIN B1 100 MG PO (07:50)
[2025-05-27] MEDS: INDERAL 10 MG PO ×2 (07:50→20:30)
[2025-05-27] MEDS: THERAGRAN 1 TABLET PO (07:50)
[2025-05-27] MEDS: PROTONIX 40 MG PO (07:50)
[2025-05-27] MEDS: ELIQUIS 5 MG PO ×2 (07:50→20:30)
--- NOTE | 2025-05-27 08:06 | PTCARENOTE ---
recd pt 0700 handoff with previous RN. Vascular assessment performed, palpable signals, dressings oozing but no increase from previous assessment. Vascular team here, dressings remove with intention to reapply this am. pt and family aware of
plans and expectations for the day. Using IS. Questions answered re: meds and changes. Ordered and awaiting breakfast. Urinal bedside, denies urge to void at this time.
[2025-05-27] MEDS: ROXICODONE 5 MG PO ×2 (11:26→16:26)
--- NOTE | 2025-05-27 12:14 | PTCARENOTE ---
oob to chair with RW, PT and OT in room. presently eating lunch without c/o.
--- NOTE | 2025-05-27 15:28 | CM ---
Discharge POC: Therapy recommendation for SNF. Spoke with patient and . Received preferences. Referrals forwarded.
--- NOTE | 2025-05-27 16:53 | PTCARENOTE ---
back to bed, med with pain pill, no change.
[2025-05-27] MEDS: PRAVACHOL 10 MG PO (20:30)
--- NOTE | 2025-05-27 21:05 | PTCARENOTE ---
Pt is Aox3, VSS, MSAS -1. NSR on monitor, no edema, palpable pulses, LLE warm and pink. Left groin site dress is clean, dry and intact. ELODIA drain green light, TAYLOR drains with sanguinous drainage.
[2025-05-27] MEDS: NON-FORMULARY ITEM 1.5 MG PO (22:06)
[2025-05-27] MEDS: SEROQUEL 50 MG PO (22:06)
[2025-05-28] VITALS (16 sets, daily range): BP systolic 94–133; BP diastolic 69–88; BMI 34.0
--- NOTE | 2025-05-28 00:30 | PTCARENOTE ---
assessment unchanged, pt offers no complaints at this time.
[2025-05-28 04:29] LABS: Hematocrit 40.7 % (39.0-52.0); Hemoglobin 13.6 g/dL (13.0-18.0); Mean Corp Hgb Conc. 33.4 g/dL (33.0-37.0); Mean Corpuscular Volume 92.7 fL (80.0-94.0); Platelet Count 168 10^3/uL (130-400); Red Cell Dist. Width 13.1 % (11.5-14.5)
[2025-05-28 04:51] LABS: Blood Urea Nitrogen 11 mg/dl (9-20); Calcium 9.1 mg/dl (8.4-10.2); Carbon Dioxide 31 mmol/L (22-30); Chloride 104 mmol/L (98-107); Estimated Creatinine Clearance > 125 ml/min; Glucose 105 mg/dl (70-99); Potassium 4.0 mmol/L (3.5-5.1); Sodium 136 mmol/L (135-145); eGFR > 60.00
--- NOTE | 2025-05-28 06:03 | PTCARENOTE ---
Scant amount of bloody drainage on TAYLOR dressings, both changed. TAYLOR drains with small amounts of sanguinous output. Palpable b/l LE pulses. Pt did not want to be washed this morning.
[2025-05-28] MEDS: INDERAL 10 MG PO ×2 (07:26→20:11)
[2025-05-28] MEDS: ELIQUIS 5 MG PO ×2 (07:26→20:11)
[2025-05-28] MEDS: VITAMIN B1 100 MG PO (07:26)
[2025-05-28] MEDS: PLAVIX 75 MG PO (07:26)
[2025-05-28] MEDS: PROTONIX 40 MG PO (07:26)
[2025-05-28] MEDS: VITAMIN D3 (cholecalciferol) 50 MCG PO (07:26)
[2025-05-28] MEDS: EFFEXOR XR 150 MG PO (07:26)
[2025-05-28] MEDS: THERAGRAN 1 TABLET PO (07:26)
--- NOTE | 2025-05-28 07:47 | W.PN.INTV ---
Today's Communication / Plan
Recommendations
Doing well
Increase activity
No change in respiratory therapies-respiratory status stable
Continue neurovascular checks
Case management/PT/OT involved in placement recommendations-rehab facility
Patient stable for discharge out of ICU-pickler helper will sign off-please call pulmonary if respiratory issues arise
Assessment
-
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
05/25/2025.Patient is seen postoperatively.
Severe symptomatic PAD
Status post-Left common femoral artery and proximal superficial femoral artery endarterectomy with patch angioplasty, intravascular lithotripsy to left popliteal artery stenosis, balloon angioplasty and drug-eluting stent to left popliteal artery,
rotational muscle flap using left sartorius muscle-Dr. Andersen 05/24/2025
Mild hyperglycemia
Conditions present prior to admission:
COPD-stage IV on chronic oxygen-Dr. Carbajal.
PAD.
Pulm hypertension.
Atrial fibrillation.
Alcohol use disorder.
Plan
He continues to be hemodynamically and neurovascularly intact
Continue supplemental oxygen as needed-on chronic oxygen
Incentive spirometry encouraged
Aspiration precautions
Nebulizers continue as needed
Symbicort and Spiriva continue
Ohyuvayre Nebulizer continues
Neuro and vascular checks per protocol
Monitor blood pressure/perfusion pressures and pulses closely
Vascular surgery following-correspondence and operative notes reviewed-keep Andersen catheter in for 24 hours
Patient began out of bed 05/27/2025
Eliquis restarted 05/27/2025
PT/OT consult obtain-? Rehab facility at time of discharge
Follow MSAS
Alcohol withdrawal treatment protocol if needed-no obvious signs of withdrawal
DVT prophylaxis-Eliquis restarted
GI prophylaxis-on pantoprazole
Continue nutrition
Above recommendations were reviewed with who was present during interview and exam.
The patient is stable for discharge out of ICU-pickler helper will sign off-please call pulmonary if respiratory issues arise
The patient has advanced COPD, quit smoking 2 months ago, follows Dr. Carbajal and maintained on Breztri, Albuterol, Ohtuvayre and O2- Follow-up as an outpatient
Reviewed the patient's pertinent medical records including radiographs, microbiology, laboratory evaluations, and discussion with primary team, consultants, pharmacy, nutrition, physical therapy, case management, charge nurse, critical care
nursing, and respiratory therapy.
Diagnostic data:
Chest x-ray 05/24/2025-NAD
Subjective Dataa
Subjective Data
Date of Service:
Date of Service: May 28, 2025
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
Subjective:
had a good night, out of bed yesterday, peripheral pulses still very good, no complaints of worsening shortness of breath, chest pain, abdominal pain
Review of Systems
General: Other ( Per HPI)
Objective Data
Data Reviewed
Vital Signs / I&O / Oxygen:
Vital Signs
Temp Pulse Resp BP Pulse Ox
98.5 F 67 18 114/69 93
05/28/25 07:29 05/28/25 05:00 05/28/25 05:00 05/28/25 05:00 05/28/25 05:00
Intake and Output
05/27/25 05/28/25 05/29/25
06:59 06:59 06:59
Intake Total 1380 / 1380 1500 / 1500
Output Total 1390 / 1390 1065 / 1065
Balance -10 / -10 435 / 435
SaO2 93
Nasal Cannula flow liters per 2
minute
Physical Exam
General: Respiratory Distress (n) and Comfortable
HEENT: Normocephalic, Anicteric and Moist Mucous Membranes
Cardiovascular: Regular Rhythm and Murmur
Respiratory: Wheeze ( few expiratory), Rhonchi ( expiratory), Non-Labored Respirations and Accessory Resp Muscle Use (n)
GI: Soft, Non Distended and Non Tender
Neurology: Awake, Alert and No Motor Deficits
Skin: Warm, Good Color, Cyanosis (n) and Jaundice (n)
Labs/Micro/Reports
Lab Data
05/28/25 04:09
05/28/25 04:09
[2025-05-28] MEDS: SPIRIVA RESPIMAT 2.5 MCG 2 PUFF INH (08:08)
[2025-05-28] MEDS: SYMBICORT 160/4.5 MCG INHALER 2 PUFF INH ×2 (08:08→18:24)
[2025-05-28] MEDS: NON-FORMULARY ITEM 2.5 ML INH ×2 (08:09→18:23)
--- NOTE | 2025-05-28 12:11 | PTCARENOTE ---
1100-pt OOB to recliner chair with min assist of 2 and rolling walker. No changes in assessment. at bedside.
--- NOTE | 2025-05-28 12:19 | W.PN.VS ---
Today's Communication / Plan
-
ok to downgrade
work on placement
Assessment/Plan
-
Postop day 4 Left common femoral artery and proximal superficial femoral artery endarterectomy with patch angioplasty using bovine pericardium
Intravascular lithotripsy to calcified left popliteal artery stenosis (6 mm x 80 mm E8)
Balloon angioplasty and drug-eluting stent placement to left popliteal artery (6 mm x 140 mm Zilver PTX; postdilated with 6 mm angioplasty balloon)
Rotational muscle flap using left sartorius muscle
Plan:
cont eliquis
increase activity
ok to downgrade to tele
oob
s/w for placement
Subjective Data
-
Date of Service: May 28, 2025
doing well today
no complaints
Objective Data
-
Vital Signs
Temp Pulse Resp BP Pulse Ox
98.5 F 65 12 125/74 93
05/28/25 11:00 05/28/25 12:00 05/28/25 12:00 05/28/25 11:00 05/28/25 12:00
Intake and Output
05/27/25 05/28/25 05/29/25
06:59 06:59 06:59
Intake Total 1380 / 1380 1500 / 1500
Output Total 1390 / 1390 1065 / 1065
Balance -10 / -10 435 / 435
Intake:
Oral fluids 1380 / 1380 1500 / 1500
Output:
Drain Output (Total) 110 / 110 65 / 65
Left Upper Leg Kiko-Ferreira A 60 / 60 35 / 35
Left Upper Leg Kiko-Ferreira B 50 / 50 30 / 30
Urine, Andersen 1280 / 1280
Urine, Voided 1000 / 1000
Other:
How many times incontinent 1
SMALL amount urine
Lab Results
05/28/25 04:09
07/04/25 04:09
Calcium 9.1 mg/dl (8.4-10.2) 05/28/25 04:09
Phosphorus 3.0 mg/dl (2.5-4.5) 05/24/25 18:42
Magnesium 2.1 mg/dl (1.6-2.3) 05/24/25 18:42
Total Bilirubin 1.2 mg/dl (0.2-1.3) 05/24/25 18:42
AST 33 U/L (17-59) 05/24/25 18:42
ALT 29 U/L (0-50) 05/24/25 18:42
Alkaline Phosphatase 82 U/L (38-126) 05/24/25 18:42
Total Protein 6.5 g/dl (6.3-8.2) 05/24/25 18:42
Albumin 3.9 g/dl (3.5-5.0) 05/24/25 18:42
Physical Exam
-
rrr
ctab
dressing intact
+ DP pulse
[2025-05-28] MEDS: NON-FORMULARY ITEM 1.5 MG PO (20:11)
[2025-05-28] MEDS: PRAVACHOL 10 MG PO (20:11)
[2025-05-28] MEDS: SEROQUEL 50 MG PO (20:11)
[2025-05-29 03:14] VITALS: BP 123/86
[2025-05-29 06:20] LABS: Hematocrit 41.7 % (39.0-52.0); Hemoglobin 13.8 g/dL (13.0-18.0); Mean Corp Hgb Conc. 33.1 g/dL (33.0-37.0); Mean Corpuscular Volume 92.7 fL (80.0-94.0); Platelet Count 190 10^3/uL (130-400); Red Cell Dist. Width 13.0 % (11.5-14.5)
[2025-05-29 06:40] LABS: Blood Urea Nitrogen 14 mg/dl (9-20); Calcium 9.1 mg/dl (8.4-10.2); Carbon Dioxide 29 mmol/L (22-30); Chloride 102 mmol/L (98-107); Estimated Creatinine Clearance 125 ml/min; Glucose 108 mg/dl (70-99); Potassium 4.1 mmol/L (3.5-5.1); Sodium 136 mmol/L (135-145); eGFR > 60.00
[2025-05-29 07:15] VITALS: BP 113/75
[2025-05-29] MEDS: PLAVIX 75 MG PO (07:37)
[2025-05-29] MEDS: PROTONIX 40 MG PO (07:38)
[2025-05-29] MEDS: INDERAL 10 MG PO ×2 (07:38→20:35)
[2025-05-29] MEDS: EFFEXOR XR 150 MG PO (07:38)
[2025-05-29] MEDS: VITAMIN D3 (cholecalciferol) 50 MCG PO (07:38)
[2025-05-29] MEDS: THERAGRAN 1 TABLET PO (07:38)
[2025-05-29] MEDS: ELIQUIS 5 MG PO ×2 (07:38→20:36)
[2025-05-29] MEDS: VITAMIN B1 100 MG PO (07:38)
[2025-05-29] MEDS: SPIRIVA RESPIMAT 2.5 MCG 2 PUFF INH (07:49)
[2025-05-29] MEDS: NON-FORMULARY ITEM 2.5 ML INH ×2 (07:50→20:23)
[2025-05-29] MEDS: SYMBICORT 160/4.5 MCG INHALER 2 PUFF INH ×2 (07:50→20:18)
--- NOTE | 2025-05-29 10:55 | W.PN.VS ---
Today's Communication / Plan
-
increase activity
PT
ok for discharge to rehab when bed available
Assessment/Plan
-
Postop day 5 Left common femoral artery and proximal superficial femoral artery endarterectomy with patch angioplasty using bovine pericardium
Intravascular lithotripsy to calcified left popliteal artery stenosis (6 mm x 80 mm E8)
Balloon angioplasty and drug-eluting stent placement to left popliteal artery (6 mm x 140 mm Zilver PTX; postdilated with 6 mm angioplasty balloon)
Rotational muscle flap using left sartorius muscle
Plan:
cont Eliquis
increase activity
PT
oob
s/w for placement
Subjective Data
-
Date of Service: May 29, 2025
looks great
no complaints
Objective Data
-
Vital Signs
Temp Pulse Resp BP Pulse Ox
98.0 F 753 14 113/74 95
05/29/25 07:15 05/29/25 07:55 05/29/25 07:55 05/29/25 07:38 05/29/25 07:55
Intake and Output
05/28/25 05/29/25 05/30/25
06:59 06:59 06:59
Intake Total 1500 / 1500 900 / 900
Output Total 1065 / 1065 1637 / 1637
Balance 435 / 435 -737 / -737
Intake:
Oral fluids 1500 / 1500 900 / 900
Output:
Drain Output (Total) 65 / 65 12
Left Upper Leg Kiko-Ferreira A 35 / 35
Left Upper Leg Kiko-Ferreira B 30 / 30 0 / 0
Urine, Voided 1000 / 1000 1625 / 1625
Other:
How many times incontinent 1
SMALL amount urine
Lab Results
05/29/25 05:48
05/29/25 05:48
Calcium 9.1 mg/dl (8.4-10.2) 05/29/25 05:48
Phosphorus 3.0 mg/dl (2.5-4.5) 05/24/25 18:42
Magnesium 2.1 mg/dl (1.6-2.3) 05/24/25 18:42
Total Bilirubin 1.2 mg/dl (0.2-1.3) 05/24/25 18:42
AST 33 U/L (17-59) 05/24/25 18:42
ALT 29 U/L (0-50) 05/24/25 18:42
Alkaline Phosphatase 82 U/L (38-126) 05/24/25 18:42
Total Protein 6.5 g/dl (6.3-8.2) 05/24/25 18:42
Albumin 3.9 g/dl (3.5-5.0) 05/24/25 18:42
Physical Exam
-
dressing intact
ene min
+ DP pulse
[2025-05-29] MEDS: ROXICODONE 5 MG PO (11:20)
[2025-05-29 11:37] VITALS: BP 119/74
[2025-05-29 15:15] VITALS: BP 126/68
[2025-05-29 19:41] VITALS: BP 128/88
[2025-05-29] MEDS: PRAVACHOL 10 MG PO (20:35)
[2025-05-29] MEDS: SEROQUEL 50 MG PO (20:36)
[2025-05-29] MEDS: NON-FORMULARY ITEM 1.5 MG PO (20:36)
[2025-05-29 23:42] VITALS: BP 112/78
[2025-05-30] VITALS (7 sets, daily range): BP systolic 106–147; BP diastolic 65–87; PULSE 65; O2SAT 98
--- NOTE | 2025-05-30 05:56 | W.PN.VS ---
Today's Communication / Plan
-
placement pending
increase PT and ambulation
Assessment/Plan
-
Postop day 6 Left common femoral artery and proximal superficial femoral artery endarterectomy with patch angioplasty using bovine pericardium
Intravascular lithotripsy to calcified left popliteal artery stenosis (6 mm x 80 mm E8)
Balloon angioplasty and drug-eluting stent placement to left popliteal artery (6 mm x 140 mm Zilver PTX; postdilated with 6 mm angioplasty balloon)
Rotational muscle flap using left sartorius muscle
Plan:
cont Eliquis
increase activity
PT
oob
s/w for placement
Subjective Data
-
Date of Service: May 30, 2025
doing well
no complaints
Objective Data
-
Vital Signs
Temp Pulse Resp BP Pulse Ox
98.1 F 74 20 147/87 93
05/30/25 03:40 05/30/25 03:40 05/30/25 03:40 05/30/25 03:40 05/30/25 03:40
Intake and Output
05/28/25 05/29/25 05/30/25
06:59 06:59 06:59
Intake Total 1500 / 1500 900 / 900 1540 / 1540
Output Total 1065 / 1065 1637 / 1637 1253 / 1253
Balance 435 / 435 -737 / -737 287 / 287
Intake:
Oral fluids 1500 / 1500 900 / 900 1540 / 1540
Output:
Drain Output (Total) 65 / 65 3 / 3
Left Upper Leg Kiko-Ferreira A 35 / 35
Left Upper Leg Kiko-Ferreira B 30 / 30 0 / 0 2 / 2
Urine, Voided 1000 / 1000 1625 / 1625 1250 / 1250
Other:
Number of approximated MODERATE 2
amounts of urine
How many times incontinent 1
SMALL amount urine
Lab Results
05/29/25 05:48
05/29/25 05:48
Calcium 9.1 mg/dl (8.4-10.2) 05/29/25 05:48
Phosphorus 3.0 mg/dl (2.5-4.5) 05/24/25 18:42
Magnesium 2.1 mg/dl (1.6-2.3) 05/24/25 18:42
Total Bilirubin 1.2 mg/dl (0.2-1.3) 05/24/25 18:42
AST 33 U/L (17-59) 05/24/25 18:42
ALT 29 U/L (0-50) 05/24/25 18:42
Alkaline Phosphatase 82 U/L (38-126) 05/24/25 18:42
Total Protein 6.5 g/dl (6.3-8.2) 05/24/25 18:42
Albumin 3.9 g/dl (3.5-5.0) 05/24/25 18:42
Physical Exam
-
dressing intact
will remove brown tapan
+ DP pulse
[2025-05-30] MEDS: SYMBICORT 160/4.5 MCG INHALER 2 PUFF INH ×2 (07:27→20:06)
[2025-05-30] MEDS: SPIRIVA RESPIMAT 2.5 MCG 2 PUFF INH (07:27)
[2025-05-30] MEDS: NON-FORMULARY ITEM 2.5 ML INH ×2 (07:28→20:06)
[2025-05-30] MEDS: PROTONIX 40 MG PO (08:06)
[2025-05-30] MEDS: EFFEXOR XR 150 MG PO (08:07)
[2025-05-30] MEDS: ELIQUIS 5 MG PO ×2 (08:07→19:11)
[2025-05-30] MEDS: VITAMIN D3 (cholecalciferol) 50 MCG PO (08:07)
[2025-05-30] MEDS: THERAGRAN 1 TABLET PO (08:07)
[2025-05-30] MEDS: VITAMIN B1 100 MG PO (08:07)
[2025-05-30] MEDS: PLAVIX 75 MG PO (08:07)
[2025-05-30] MEDS: INDERAL 10 MG PO ×2 (08:07→19:11)
[2025-05-30] MEDS: PRAVACHOL 10 MG PO (19:11)
[2025-05-30] MEDS: SEROQUEL 50 MG PO (21:28)
[2025-05-30] MEDS: NON-FORMULARY ITEM 1.5 MG PO (21:29)
[2025-05-31 03:00] VITALS: BP 126/84
--- NOTE | 2025-05-31 04:46 | PTCARENOTE ---
TAYLOR -A drained 5cc sanguineous drainage with a small clot. TAYLOR-B drained 1cc sanguineous drainage.
[2025-05-31] MEDS: SPIRIVA RESPIMAT 2.5 MCG 2 PUFF INH (07:02)
[2025-05-31] MEDS: NON-FORMULARY ITEM 2.5 ML INH ×2 (07:03→20:03)
[2025-05-31] MEDS: SYMBICORT 160/4.5 MCG INHALER 2 PUFF INH ×2 (07:03→20:04)
[2025-05-31 08:08] VITALS: BP 126/77
--- NOTE | 2025-05-31 08:35 | W.PN.VS ---
Today's Communication / Plan
-
Discussed with Attending
Assessment/Plan
-
Postop day 7 Left common femoral artery and proximal superficial femoral artery endarterectomy with patch angioplasty using bovine pericardium
Intravascular lithotripsy to calcified left popliteal artery stenosis (6 mm x 80 mm E8)
Balloon angioplasty and drug-eluting stent placement to left popliteal artery (6 mm x 140 mm Zilver PTX; postdilated with 6 mm angioplasty balloon)
Rotational muscle flap using left sartorius muscle
Plan:
Yung dressing removed, may cover with clean dry gauze daily or leave open to air if site remains dry
SNF when bed available, patient ready
Increase activity/ambulation
Continue Plavix/Eliquis
Subjective Data
-
Date of Service: May 31, 2025
Patient seen at bedside this a.m. Patient offers no complaint at this time. No events overnight.
Objective Data
-
Vital Signs
Temp Pulse Resp BP Pulse Ox
98.4 F 69 16 126/77 96
05/31/25 08:08 05/31/25 08:08 05/31/25 08:08 05/31/25 08:08 05/31/25 08:08
Intake and Output
05/30/25 05/31/25 06/01/25
06:59 06:59 06:59
Intake Total 1540 / 1540 900 / 900
Output Total 1578 / 1578 438 / 438
Balance -38 / -38 462 / 462
Intake:
Oral fluids 1540 / 1540
IV fluids (Total) 900 / 900
Output:
Drain Output (Total)
Left Upper Leg Kiko-Ferreira A
Left Upper Leg Kiko-Ferreira B
Urine, Voided 1575 / 1575 425 / 425
Other:
Number of approximated MODERATE 2 4
amounts of urine
Lab Results
05/29/25 05:48
05/29/25 05:48
Calcium 9.1 mg/dl (8.4-10.2) 05/29/25 05:48
Phosphorus 3.0 mg/dl (2.5-4.5) 05/24/25 18:42
Magnesium 2.1 mg/dl (1.6-2.3) 05/24/25 18:42
Total Bilirubin 1.2 mg/dl (0.2-1.3) 05/24/25 18:42
AST 33 U/L (17-59) 05/24/25 18:42
ALT 29 U/L (0-50) 05/24/25 18:42
Alkaline Phosphatase 82 U/L (38-126) 05/24/25 18:42
Total Protein 6.5 g/dl (6.3-8.2) 05/24/25 18:42
Albumin 3.9 g/dl (3.5-5.0) 05/24/25 18:42
Physical Exam
-
AO x 3
No tachypnea on 2 L nasal cannula
No tachycardia
Abdomen soft
Groin site dressing removed by me, staple line intact and well-approximated, no drainage noted
TAYLOR drains intact with minimal output
Foot warm and pink with palpable pulse
[2025-05-31] MEDS: VITAMIN D3 (cholecalciferol) 50 MCG PO (08:50)
[2025-05-31] MEDS: PROTONIX 40 MG PO (08:50)
[2025-05-31] MEDS: VITAMIN B1 100 MG PO (08:50)
[2025-05-31] MEDS: ELIQUIS 5 MG PO ×2 (08:50→19:37)
[2025-05-31] MEDS: THERAGRAN 1 TABLET PO (08:50)
[2025-05-31] MEDS: PLAVIX 75 MG PO (08:50)
[2025-05-31] MEDS: EFFEXOR XR 150 MG PO (08:50)
[2025-05-31] MEDS: INDERAL 10 MG PO ×2 (08:50→20:57)
[2025-05-31 11:30] VITALS: BP 129/74
--- NOTE | 2025-05-31 11:50 | CM ---
CM reviewed pt with vascular [facility]- ready for dc
Pt denied at [facility], [facility], [facility] and [facility]
Only accepting bed is [facility]- bedside meeting and pt in agreement
Auth initiated with [employer] p) [phone]
Clinicals faxed to (f) [phone]
As request placed as urgent, it was noted up to 72 hours for processing as opposed to 6 days for standard requests
SNF pending ref# [id number]
S does not require auth for CPT codes A0428 and A0425
Pt on 2L chronically but unknown if pt has portable
Plan for dc with TAYLOR drains 2x, update to SNF admissions/Carol
Discharge Disposition- [facility], transport TBD
[2025-05-31 16:31] VITALS: BP 139/82
[2025-05-31] MEDS: PRAVACHOL 10 MG PO (19:37)
[2025-05-31] MEDS: SEROQUEL 50 MG PO (21:00)
[2025-05-31] MEDS: NON-FORMULARY ITEM 1.5 MG PO (21:00)
[2025-05-31 23:00] VITALS: BP 122/77
--- NOTE | 2025-06-01 05:13 | PTCARENOTE ---
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 Pt verbalized and demonstrated TAYLOR care, some trouble with dexterity as he has mild tremors.
[2025-06-01 07:50] VITALS: BP 131/84
--- NOTE | 2025-06-01 07:53 | W.PN.VS ---
Today's Communication / Plan
-
hopeful for rehab today
Assessment/Plan
-
Postop day 8 Left common femoral artery and proximal superficial femoral artery endarterectomy with patch angioplasty using bovine pericardium
Intravascular lithotripsy to calcified left popliteal artery stenosis (6 mm x 80 mm E8)
Balloon angioplasty and drug-eluting stent placement to left popliteal artery (6 mm x 140 mm Zilver PTX; postdilated with 6 mm angioplasty balloon)
Rotational muscle flap using left sartorius muscle
Plan:
dry dressing to groin
SNF when bed available, patient ready
Increase activity/ambulation
Continue Plavix/Eliquis
Subjective Data
-
Date of Service: June 01, 2025
doing well
no complaints
increased his ambulation
Objective Data
-
Vital Signs
Temp Pulse Resp BP Pulse Ox
97.8 F 76 16 122/77 92
05/31/25 23:00 05/31/25 23:00 05/31/25 23:00 05/31/25 23:00 05/31/25 23:00
Intake and Output
05/31/25 06/01/25 06/02/25
06:59 06:59 06:59
Intake Total 900 / 900 920 / 920
Output Total 438 / 438 1602 / 1602
Balance 462 / 462 -682 / -682
Intake:
Oral fluids 920 / 920
IV fluids (Total) 900 / 900
Output:
Drain Output (Total)
Left Upper Leg Kiko-Ferreira A
Left Upper Leg Kiko-Ferreira B
Urine, Voided 425 / 425 1600 / 1600
Other:
Number of approximated MODERATE 4
amounts of urine
Lab Results
05/29/25 05:48
05/29/25 05:48
Calcium 9.1 mg/dl (8.4-10.2) 05/29/25 05:48
Phosphorus 3.0 mg/dl (2.5-4.5) 05/24/25 18:42
Magnesium 2.1 mg/dl (1.6-2.3) 05/24/25 18:42
Total Bilirubin 1.2 mg/dl (0.2-1.3) 05/24/25 18:42
AST 33 U/L (17-59) 05/24/25 18:42
ALT 29 U/L (0-50) 05/24/25 18:42
Alkaline Phosphatase 82 U/L (38-126) 05/24/25 18:42
Total Protein 6.5 g/dl (6.3-8.2) 05/24/25 18:42
Albumin 3.9 g/dl (3.5-5.0) 05/24/25 18:42
Physical Exam
-
rrr
inc c/d/i
+ dp pulse
min from ene
[2025-06-01] MEDS: SPIRIVA RESPIMAT 2.5 MCG 2 PUFF INH (08:08)
[2025-06-01] MEDS: SYMBICORT 160/4.5 MCG INHALER 2 PUFF INH ×2 (08:08→19:56)
[2025-06-01] MEDS: NON-FORMULARY ITEM 2.5 ML INH ×2 (08:14→19:56)
[2025-06-01] MEDS: PLAVIX 75 MG PO (08:50)
[2025-06-01] MEDS: VITAMIN B1 100 MG PO (08:50)
[2025-06-01] MEDS: VITAMIN D3 (cholecalciferol) 50 MCG PO (08:50)
[2025-06-01] MEDS: PROTONIX 40 MG PO (08:50)
[2025-06-01] MEDS: THERAGRAN 1 TABLET PO (08:50)
[2025-06-01] MEDS: INDERAL 10 MG PO ×2 (08:50→21:24)
[2025-06-01] MEDS: ELIQUIS 5 MG PO ×2 (08:50→19:34)
[2025-06-01] MEDS: EFFEXOR XR 150 MG PO (08:50)
--- NOTE | 2025-06-01 15:30 | CM ---
Reviewed the chart notes and spoke with Liss with [facility]. Rahat is still in review. CM continues to be available to patient/family and is monitoring medical plan for needs at discharge.
Plan: Discharge to [facility] once auth received.
[2025-06-01 15:35] VITALS: BP 137/81
[2025-06-01] MEDS: PRAVACHOL 10 MG PO (19:34)
[2025-06-01] MEDS: SEROQUEL 50 MG PO (21:24)
[2025-06-01] MEDS: NON-FORMULARY ITEM 1.5 MG PO (21:24)
[2025-06-01 23:16] VITALS: BP 126/70
[2025-06-02] MEDS: SPIRIVA RESPIMAT 2.5 MCG 2 PUFF INH (07:18)
[2025-06-02] MEDS: SYMBICORT 160/4.5 MCG INHALER 2 PUFF INH (07:18)
[2025-06-02] MEDS: NON-FORMULARY ITEM 2.5 ML INH (07:18)
[2025-06-02 07:20] VITALS: BP 126/77
--- NOTE | 2025-06-02 07:31 | W.PN.VS ---
Today's Communication / Plan
-
ready for discharge to rehab
Assessment/Plan
-
Postop day 9 Left common femoral artery and proximal superficial femoral artery endarterectomy with patch angioplasty using bovine pericardium
Intravascular lithotripsy to calcified left popliteal artery stenosis (6 mm x 80 mm E8)
Balloon angioplasty and drug-eluting stent placement to left popliteal artery (6 mm x 140 mm Zilver PTX; postdilated with 6 mm angioplasty balloon)
Rotational muscle flap using left sartorius muscle
Plan:
dry dressing to groin
SNF when bed available, patient ready
Increase activity/ambulation
Continue Plavix/Eliquis
Subjective Data
-
Date of Service: June 02, 2025
doing well
no complaints
Objective Data
-
Vital Signs
Temp Pulse Resp BP Pulse Ox
98.1 F 78 16 126/70 93
06/01/25 23:16 06/02/25 07:19 06/02/25 07:19 06/01/25 23:16 06/01/25 23:16
Intake and Output
06/01/25 06/02/25 06/03/25
06:59 06:59 06:59
Intake Total 920 / 920 1460 / 1460
Output Total 1602 / 1602 4 /
Balance -682 / -682 1456 / 1456
Intake:
Oral fluids 920 / 920 1460 / 1460
Output:
Drain Output (Total) 2 / 2 4
Left Upper Leg Kiko-Ferreira A
Left Upper Leg Kiko-Ferreira B
Urine, Voided 1600 / 1600
Other:
Number of approximated MODERATE 1
amounts of urine
Lab Results
05/29/25 05:48
05/29/25 05:48
Calcium 9.1 mg/dl (8.4-10.2) 05/29/25 05:48
Phosphorus 3.0 mg/dl (2.5-4.5) 05/24/25 18:42
Magnesium 2.1 mg/dl (1.6-2.3) 05/24/25 18:42
Total Bilirubin 1.2 mg/dl (0.2-1.3) 05/24/25 18:42
AST 33 U/L (17-59) 05/24/25 18:42
ALT 29 U/L (0-50) 05/24/25 18:42
Alkaline Phosphatase 82 U/L (38-126) 05/24/25 18:42
Total Protein 6.5 g/dl (6.3-8.2) 05/24/25 18:42
Albumin 3.9 g/dl (3.5-5.0) 05/24/25 18:42
Physical Exam
-
inc c/d/i
ene min
one drain pulled
+ DP pulse
[2025-06-02] MEDS: EFFEXOR XR 150 MG PO (08:46)
[2025-06-02] MEDS: VITAMIN D3 (cholecalciferol) 50 MCG PO (08:47)
[2025-06-02] MEDS: THERAGRAN 1 TABLET PO (08:47)
[2025-06-02] MEDS: VITAMIN B1 100 MG PO (08:47)
[2025-06-02] MEDS: INDERAL 10 MG PO (08:47)
[2025-06-02] MEDS: ELIQUIS 5 MG PO (08:47)
[2025-06-02] MEDS: PROTONIX 40 MG PO (08:47)
[2025-06-02] MEDS: PLAVIX 75 MG PO (08:47)
--- NOTE | 2025-06-02 11:41 | CM ---
Addendum entered by Araceli Laughlin RN 06/02/25 12:30:
Sera Senior [employer] from [facility] updated on discharge plan.
Addendum entered by Araceli Laughlin RN 06/02/25 11:55:
Auth for [facility] obtained for 05/31-06/07; NRD 06/07; clinicals fax to [phone]; Auth # [id number]. CM spoke with the patient's spouse who wishes patient to return home with outpatient PT. Also requested a script for a bedside commode. CM
offered VN services to the patient's spouse. Spouse will speak with the patient's PCP on Saturday visit to see if patient needs VN. Attending updated.
Original Note:
Reviewed the chart notes and spoke with the patient at the bedside. IMM reviewed.
--- NOTE | 2025-06-02 11:59 | W.[place]-PDMP ---
[place]-PDMP
-
Checked the [place]- Prescription Drug Monitoring Program website, no red flags identified; safe to proceed with prescription.
[2025-06-02 13:01] VITALS: PULSE 63; O2SAT 96
[2025-06-02 13:20] VITALS: BP 123/81
--- NOTE | 2025-06-07 13:46 | PN.CDI ---
CDI
- -
CDI:
Physician Documentation Request
Admit Date: 05/24/25 09:15
Dear Doctor Markell,
Please review the following and provide your response in the progress notes.
Clinical Indicators:
#Date/Time Consultation Performed: 05/25/2025-7:30 AM
#Performing Provider: Dr. Guillaume
#Reason for Consultation: Postoperative critical care management
#Past Medical History:
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 Carbajal.
PN, 05/28
#Continue supplemental oxygen as needed-on chronic oxygen
Based on the above and your clinical assessment, please clarify which of the following accurately represents the patient's respiratory status and chronic O2 use:
Chronic respiratory failure
Hypoxia
Other(please specify)
Use of terms such as suspected, likely, concern for, or probable (associated with a specific diagnosis that is being evaluated, monitored, or treated as if it exists) are acceptable and can be coded in the inpatient setting, when documented at the
time of discharge.
Thank you,
Faustina Martinez RN BSN CCDS
CDI Specialist
Please contact via tiger text
Please use your independent medical judgment in providing your response.
--- NOTE | 2025-06-16 08:19 | PN.CDI ---
CDI
- -
CDI:
Physician Documentation Request
Admit Date: 05/24/25 09:15
Dear Doctor Markell,
Please review the following and provide your response in the progress notes.
Clinical Indicators:
#Date/Time Consultation Performed: 05/25/2025-7:30 AM
#Performing Provider: Dr. Guillaume
#Reason for Consultation: Postoperative critical care management
#Past Medical History:
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 Carbajal.
PN, 05/28
#Continue supplemental oxygen as needed-on chronic oxygen
Based on the above and your clinical assessment, please clarify which of the following accurately represents the patient's respiratory status and chronic O2 use:
Chronic respiratory failure
Hypoxia
Other(please specify)
Use of terms such as suspected, likely, concern for, or probable (associated with a specific diagnosis that is being evaluated, monitored, or treated as if it exists) are acceptable and can be coded in the inpatient setting, when documented at the
time of discharge.
Thank you,
Faustina Martinez RN BSN CCDS
CDI Specialist
Please contact via tiger text
Please use your independent medical judgment in providing your response.
--- NOTE | 2025-06-16 14:14 | W.PN.UPDATE ---
Update Note
Progress Note Update
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
Patient had acute on top of chronic hypoxemic respiratory failure-patient has stage IV COPD on chronic outpatient oxygen requiring increased oxygen in the hospital perioperatively
== END 2025-06-02 16:00 | DRG 278 ==
LOC: 2 SOUTH 09:15
PROVIDERS: Nurse Practitioner; Nurse Practitioner Acute Care; ADMITTING PHYSICIAN Surgery Vascular Surgery; CONSULT PHYSICIAN Internal Medicine Critical Care Medicine; PRIMARYCARE PHYSICIAN Student in an Organized Health Care Education/Training Program; REFERRING PHYSICIAN Student in an Organized Health Care Education/Training Program
PROC: 04CL0ZZ Extirpation of Matter from Left Femoral Artery, Open Approach (ICD-10-PCS; 2025-05-24)
PROC: 04UL0KZ Supplement Left Femoral Artery with Nonautologous Tissue Substitute, Open Approach (ICD-10-PCS; 2025-05-24)
PROC: 0KXR0ZZ Transfer Left Upper Leg Muscle, Open Approach (ICD-10-PCS; 2025-05-24)
PROC: 047N34Z Dilation of Left Popliteal Artery with Drug-eluting Intraluminal Device, Percutaneous Approach (ICD-10-PCS; 2025-05-24)
PROC: 04FN3ZZ Fragmentation of Left Popliteal Artery, Percutaneous Approach (ICD-10-PCS; 2025-05-24)
DX: I70.222 Atherosclerosis of native arteries of extremities with rest pain, left leg (principal); J96.21 Acute and chronic respiratory failure with hypoxia; J44.9 Chronic obstructive pulmonary disease, unspecified; Z99.81 Dependence on supplemental oxygen; I48.91 Unspecified atrial fibrillation; F10.10 Alcohol abuse, uncomplicated; I27.20 Pulmonary hypertension, unspecified; R73.9 Hyperglycemia, unspecified; Z87.891 Personal history of nicotine dependence
CPT/HCPCS: 15738; 36415; 71045; 71046; 80048; 80053; 82962; 83735; 84100; 85025; 85027; 85610; 85730; 86850; 86900; 86901; 88304; 88311; 93005; 94640; 97116; 97163; 97167; 97530; 97535; C1725; C1769; C1874; C1894; C9765; Q9967

== ENCOUNTER 2025-06-08 09:37 | Inpatient (IN) | payer OTHER, SELFPAY ==
[2025-06-07 19:06] VITALS: BP 121/71
--- NOTE | 2025-06-07 20:35 | ED.GENMED ---
History of Present Illness
<Francia Ramirez PA-C - Last Filed: 06/08/25 09:50>
General
Chief Complaint: Skin Problem
Source: patient and records
Time Seen by Provider: 06/07/25 20:34
History of Present Illness
History of Present Illness:
64yoM with a history of peripheral vascular disease s/p left common femoral artery and proximal superficial femoral artery endarterectomy on 05/24/[address] Andersen presenting for evaluation of bleeding from his surgical wound. Patient was doing his
leg exercises about 3 hours ago. He stood up and felt blood trickle down his leg. The postop dressings were saturated in blood and he came to the ED. also notes that the drainage from his TAYLOR drain has increased. It was very minimal a few
days ago and she emptied about 5cc of blood earlier today. Patient denies any paresthesias to the leg. He is taking Eliquis and Plavix.
Phy Exam
<Francia Ramirez PA-C - Last Filed: 06/08/25 09:50>
General Physical Exam
General Presentation: well appearing and no apparent distress
General Skin: warm and dry
General Habitus: normal
General Mental: alert
ENT Exam
ENT Exam: normocephalic
Pulmonary Exam
Pulmonary Exam: no respiratory distress
Neurological Exam
Neurological Exam: alert
Rosalva Coma Scale
Eye Opening: Spontaneous
Verbal Response: Oriented
Motor Response: Obeys Commands
GCS Total Score: 15
Skin Exam
Skin Exam: normal color, warm/dry and other (There is a minimal amount of bleeding noted surrounding the TAYLOR drain in the L upper thigh. Palpable firmness surrounding the TAYLOR drain suspicious for hematoma. Groin is otherwise soft, compressible. No
evidence of cellulitis or purulence. 2+ DP pulse.)
Course
<Francia Ramirez PA-C - Last Filed: 06/08/25 09:50>
Orders/Labs/Results
Orders:
Orders
06/07/25 20:59
CT Abd Aorta Angio W/ Run Off Urgent
Comment:
Reason For Exam: s/p L femoral endartectomy, bleeding from wound
06/07/25 22:11
Basic Metabolic Panel Urgent
Complete Blood Count/With Diff Urgent
PTT Urgent
Prothrombin Time Urgent
06/08/25 00:32
Vascular Surgery Consult Urgent
Consulting Provider: Fabricio Andersen III
Was physician already notified: Yes
06/08/25 01:14
Quetiapine Fumarate [Seroquel] 50 mg PO NOW STA
06/08/25 Breakfast
Cholesterol Lowering
At Your Request: Full Participation
Does patient need a safe tray?: No
Reason for opting out of [facility] order writing: Provider Decision
Cholesterol Lowering: Sodium, 2 Gram
06/08/25 06:11
Hemoglobin Urgent
06/08/25 08:22
Code Status As Directed
Resuscitation Status: Full Code
Acetaminophen [Tylenol] 650 mg PO Q4HPRN PRN
Bisacodyl [Dulcolax] 10 mg RECTAL DAILYPRN PRN
Oxycodone [Roxicodone] 5 mg PO Q4HPRN PRN
06/08/25 08:23
Admit Patient As Directed
Co-Sign Provider:
Level of Care: Inpatient admission
Assign to:: Telemetry
Physician / Group: Vascular Surgery
Diagnosis: Cellulitus
Reason for Telemetry: Other
Other Reason for Telemetry: CAD
Date to Stop Telemetry: 06/10/25
Time to Stop Telemetry: 11:00
Reason for Hospitalization: s/p fem endart with muscle flap, cellulitis
Expected length of stay greater than two midnights?: Yes
ELOS- Estimated Length of Stay in days: 4
I certify the patient meets the requirements for IP care: Yes
Activity As Directed
Activity Level: As Tolerated
Bladder Scan As Directed
Follow Bladder Retention/Intermittent Cath Algorithm?: Yes
Frequency: Per Retention Algorithm
Intake/ Output As Directed
Frequency: Per unit guidelines
Straight Cath As Directed
Frequency: Per Retention Algorithm
Additional Instructions: straight cath as needed per acute urinary retention algorithm for 24 hrs
Additional Instructions: for bladder scan greater than 400 mL
Vital Signs As Directed
Frequency: Per unit guidelines
Call for:: SBP less than 100 or greater than 175
PRN Pain Medication Management As Directed
May give lesser potent ordered pain med per pt: Yes
preference::
Protocol:: Medication orders for pain may be administered in a
manner that supports deferring to patient preference
when the pt is:
- Requesting an ordered lesser potent pain medication.
Least to most potent pain medications are defined
as: acetaminophen < NSAID < tramadol < opioids
(morphine, oxycodone, hydromorphone).
- Requesting a lesser dose of the same medication IF
ORDERED.
- Requesting a less intrusive route of administration
if both routes are prescribed by the provider (PO <
IV).
06/08/25 08:28
VTE Contraindication Routine
VTE Mechanical Device Contraindication: PVD
Pharmocologic Contraindication: Medical Contraindication
Comment: will be on home eliquis
06/08/25 08:46
HYDROmorphone [Dilaudid] 2 mg PO Q4HPRN PRN
06/08/25 09:05
Albuterol [ProAIR HFA INHALER] 2 puff INH R Q6HPRN PRN SOB
06/08/25 09:10
VANCOMYCIN Pharmacy to Dose [VANCOCIN Pharmacy to Dose] 1 each Pharmacy To Prepare [Call Pharmacy To Prepare] 0 ml IV PER PROTOCOL
06/08/25 09:30
Vancomycin [Vancocin] 2,000 mg 0.9% Sodium Chloride 500 ml [Nss] 500 ml IV NOW
06/08/25 10:00
Piperacillin/Tazo 3.375 Gram [Zosyn] 3.375 gram in 50 ml IV Q6H
Piperacillin/Tazo 4.5 Gram [Zosyn] 4.5 gram in 100 ml IV Q6H
06/08/25 20:00
Albuterol Nebs [Ventolin Nebules] 2.5 mg INH R BID
Apixaban [Eliquis] 5 mg PO BID
Budesonide/Formoterol 160/4.5 [Symbicort 160/4.5 Mcg Inhaler] 2 puff INH R BID
Propranolol [Inderal] 10 mg PO BID
hasgeeitty-jglgdayi-krigpnosmy [Breztri Aerosphere] 2 inh INH R BID
ensifentrine [Ohtuvayre] 2.5 ml INH R BID
06/08/25 22:00
Quetiapine Fumarate [Seroquel] 50 mg PO HS
cariprazine [Vraylar] 1.5 mg PO HS
quetiapine 50 mg PO HS
06/09/25 06:00
Basic Metabolic Panel IN AM
Complete Blood Count/No Diff IN AM
Tgxmf-Inyp-Ivvnbfg IN AM
06/09/25 08:00
Cholecalciferol (Vitamin D3) [VITAMIN D3 (cholecalciferol)] 50 mcg PO DAILY
Clopidogrel Bisulfate [Plavix] 75 mg PO DAILY
FOLic ACID [Folvite] 1 mg PO DAILY
Furosemide [Lasix] 20 mg PO DAILY
Multivitamin [Theragran] 1 tablet PO DAILY
Pravastatin Sodium [Pravachol] 10 mg PO DAILY
Thiamine HCl [Vitamin B1] 100 mg PO DAILY
Tiotropium Forreston 2.5 Mcg [Spiriva Respimat 2.5 Mcg] 2 puff INH R DAILY
Venlafaxine Extended Release [Effexor Xr] 150 mg PO DAILY
thiamine HCl (vitamin B1) 100 mg PO DAILY
06/10/25 11:00
DC Protocol for Telemetry ONCE
Abnormal Lab Results
06/07/25 06/08/25
22:11 06:11
RBC 4.14 L 10^6/uL
(4.70-6.10)
Hgb 12.6 L g/dL 12.6 L g/dL
(13.0-18.0) (13.0-18.0)
Hct 38.9 L %
(39.0-52.0)
MCHC 32.4 L g/dL
(33.0-37.0)
Abs Immat Gran (auto) 0.1 H 10^3/uL
(0-0.05)
Absolute Monos (auto) 0.7 H 10^3/uL
(0.1-0.6)
Immature Gran % 0.6 H %
(0-0.5)
Carbon Dioxide 36 H mmol/L
(22-30)
Glucose 102 H mg/dl
(70-99)
06/08/25 06:11
06/07/25 22:11
Vital Signs
Initial and Last Documented VS:
Initial Vital Signs
Temp Pulse Resp BP Pulse Ox
98.0 F 85 20 121/71 99
06/07/25 19:06 06/07/25 19:06 06/07/25 19:06 06/07/25 19:06 06/07/25 19:06
Last Documented Vital Signs
Temp Pulse Resp BP Pulse Ox
98.5 F 64 16 132/75 95
06/08/25 08:42 06/08/25 08:42 06/08/25 08:42 06/08/25 08:42 06/08/25 08:42
<Haider Waddell MD - Last Filed: 06/07/25 21:11>
Orders/Labs/Results
Orders:
Orders
06/07/25 20:59
CT Abd Aorta Angio W/ Run Off Urgent
Comment:
Reason For Exam: s/p L femoral endartectomy, bleeding from wound
06/07/25 22:11
Basic Metabolic Panel Urgent
Complete Blood Count/With Diff Urgent
PTT Urgent
Prothrombin Time Urgent
06/08/25 00:32
Vascular Surgery Consult Urgent
Consulting Provider: Fabricio Andersen III
Was physician already notified: Yes
06/08/25 01:14
Quetiapine Fumarate [Seroquel] 50 mg PO NOW STA
06/08/25 Breakfast
Cholesterol Lowering
At Your Request: Full Participation
Does patient need a safe tray?: No
Reason for opting out of [facility] order writing: Provider Decision
Cholesterol Lowering: Sodium, 2 Gram
06/08/25 06:11
Hemoglobin Urgent
06/08/25 08:22
Code Status As Directed
Resuscitation Status: Full Code
Acetaminophen [Tylenol] 650 mg PO Q4HPRN PRN
Bisacodyl [Dulcolax] 10 mg RECTAL DAILYPRN PRN
Oxycodone [Roxicodone] 5 mg PO Q4HPRN PRN
06/08/25 08:23
Admit Patient As Directed
Co-Sign Provider:
Level of Care: Inpatient admission
Assign to:: Telemetry
Physician / Group: Vascular Surgery
Diagnosis: Cellulitus
Reason for Telemetry: Other
Other Reason for Telemetry: CAD
Date to Stop Telemetry: 06/10/25
Time to Stop Telemetry: 11:00
Reason for Hospitalization: s/p fem endart with muscle flap, cellulitis
Expected length of stay greater than two midnights?: Yes
ELOS- Estimated Length of Stay in days: 4
I certify the patient meets the requirements for IP care: Yes
Activity As Directed
Activity Level: As Tolerated
Bladder Scan As Directed
Follow Bladder Retention/Intermittent Cath Algorithm?: Yes
Frequency: Per Retention Algorithm
Intake/ Output As Directed
Frequency: Per unit guidelines
Straight Cath As Directed
Frequency: Per Retention Algorithm
Additional Instructions: straight cath as needed per acute urinary retention algorithm for 24 hrs
Additional Instructions: for bladder scan greater than 400 mL
Vital Signs As Directed
Frequency: Per unit guidelines
Call for:: SBP less than 100 or greater than 175
PRN Pain Medication Management As Directed
May give lesser potent ordered pain med per pt: Yes
preference::
Protocol:: Medication orders for pain may be administered in a
manner that supports deferring to patient preference
when the pt is:
- Requesting an ordered lesser potent pain medication.
Least to most potent pain medications are defined
as: acetaminophen < NSAID < tramadol < opioids
(morphine, oxycodone, hydromorphone).
- Requesting a lesser dose of the same medication IF
ORDERED.
- Requesting a less intrusive route of administration
if both routes are prescribed by the provider (PO <
IV).
06/08/25 08:28
VTE Contraindication Routine
VTE Mechanical Device Contraindication: PVD
Pharmocologic Contraindication: Medical Contraindication
Comment: will be on home eliquis
06/08/25 08:46
HYDROmorphone [Dilaudid] 2 mg PO Q4HPRN PRN
06/08/25 09:05
Albuterol [ProAIR HFA INHALER] 2 puff INH R Q6HPRN PRN SOB
06/08/25 09:10
VANCOMYCIN Pharmacy to Dose [VANCOCIN Pharmacy to Dose] 1 each Pharmacy To Prepare [Call Pharmacy To Prepare] 0 ml IV PER PROTOCOL
06/08/25 09:30
Vancomycin [Vancocin] 2,000 mg 0.9% Sodium Chloride 500 ml [Nss] 500 ml IV NOW
06/08/25 10:00
Piperacillin/Tazo 3.375 Gram [Zosyn] 3.375 gram in 50 ml IV Q6H
Piperacillin/Tazo 4.5 Gram [Zosyn] 4.5 gram in 100 ml IV Q6H
06/08/25 20:00
Albuterol Nebs [Ventolin Nebules] 2.5 mg INH R BID
Apixaban [Eliquis] 5 mg PO BID
Budesonide/Formoterol 160/4.5 [Symbicort 160/4.5 Mcg Inhaler] 2 puff INH R BID
Propranolol [Inderal] 10 mg PO BID
bcaxalgbhl-cvrksipp-zzffsadurx [Breztri Aerosphere] 2 inh INH R BID
ensifentrine [Ohtuvayre] 2.5 ml INH R BID
06/08/25 22:00
Quetiapine Fumarate [Seroquel] 50 mg PO HS
cariprazine [Vraylar] 1.5 mg PO HS
quetiapine 50 mg PO HS
06/09/25 06:00
Basic Metabolic Panel IN AM
Complete Blood Count/No Diff IN AM
Qxqrv-Vuhs-Hqtczpe IN AM
06/09/25 08:00
Cholecalciferol (Vitamin D3) [VITAMIN D3 (cholecalciferol)] 50 mcg PO DAILY
Clopidogrel Bisulfate [Plavix] 75 mg PO DAILY
FOLic ACID [Folvite] 1 mg PO DAILY
Furosemide [Lasix] 20 mg PO DAILY
Multivitamin [Theragran] 1 tablet PO DAILY
Pravastatin Sodium [Pravachol] 10 mg PO DAILY
Thiamine HCl [Vitamin B1] 100 mg PO DAILY
Tiotropium Forreston 2.5 Mcg [Spiriva Respimat 2.5 Mcg] 2 puff INH R DAILY
Venlafaxine Extended Release [Effexor Xr] 150 mg PO DAILY
thiamine HCl (vitamin B1) 100 mg PO DAILY
06/10/25 11:00
DC Protocol for Telemetry ONCE
Abnormal Lab Results
06/07/25 06/08/25
22:11 06:11
RBC 4.14 L 10^6/uL
(4.70-6.10)
Hgb 12.6 L g/dL 12.6 L g/dL
(13.0-18.0) (13.0-18.0)
Hct 38.9 L %
(39.0-52.0)
MCHC 32.4 L g/dL
(33.0-37.0)
Abs Immat Gran (auto) 0.1 H 10^3/uL
(0-0.05)
Absolute Monos (auto) 0.7 H 10^3/uL
(0.1-0.6)
Immature Gran % 0.6 H %
(0-0.5)
Carbon Dioxide 36 H mmol/L
(22-30)
Glucose 102 H mg/dl
(70-99)
06/08/25 06:11
06/07/25 22:11
Vital Signs
Initial and Last Documented VS:
Initial Vital Signs
Temp Pulse Resp BP Pulse Ox
98.0 F 85 20 121/71 99
06/07/25 19:06 06/07/25 19:06 06/07/25 19:06 06/07/25 19:06 06/07/25 19:06
Last Documented Vital Signs
Temp Pulse Resp BP Pulse Ox
98.5 F 64 16 132/75 95
06/08/25 08:42 06/08/25 08:42 06/08/25 08:42 06/08/25 08:42 06/08/25 08:42
<Francia Ramirez PA-C - Last Filed: 06/08/25 09:50>
MDM/Problems Addressed
Differential Diagnosis Includes:
64yoM here with bleeding from surgical wound site. S/p L femoral endarterectomy on 05/08. Currently on Eliquis and Plavix. VSS. He is well appearing and resting comfortably. There is a very small amount of bleeding noted surrounding the TAYLOR drain site
in the L anterior thigh with a palpable hardness. Small amount of bloody output present in TAYLOR drain. LLE is warm, well perfused, with an easily palpable DP pulse. Differential diagnosis includes: post operative bleeding, hematoma, pseudoaneurysm
I called and spoke with vascular surgery who recommends CTA with run off for further evaluation. Hemoglobin is 12.6, slightly lower than 13.8 on 05/29/25. Imaging reveals a superficial hematoma in the R groin measuring [id number] containing a surgical
drain. No arterial flush or evidence of pseudoaneurysm. Results reviewed with Dr. Andersen who is requesting that patient be kept in the ED overnight so that he may evaluate the patient in the morning.
<Francia Ramirez PA-C - Last Filed: 06/08/25 09:50>
*Pulse Oximetry
SaO2: 99
Oxygen Mode of Delivery: Room air
Patient hypoxic: no (99%)
*Critical Care Note
Total Time (30-74mins, 75-104mins- exclusive of procedures): Not Applicable
ED Attending Note
<Francia Ramirez PA-C - Last Filed: 06/08/25 09:50>
-
Portions of this chart may have been created with voice recognition software.� Occasional wrong word or��sound alike� substitutions may have occurred due to the inherent limitations of voice recognition software.
<Haider Waddell MD - Last Filed: 06/07/25 21:11>
ED Attending Note
Patient seen and examined by attending physician: Yes
I performed the substantive portion of visit, reviewed & personally made and approve the management plan that is documented in note by myself or ALAN.: Yes
ED Attending Note:
Patient had a left common femoral artery and proximal superficial femoral artery endarterectomy with patch angioplasty, intravascular lithotripsy to left popliteal artery stenosis, balloon angioplasty and drug-eluting stent placement to left
popliteal artery, rotational muscle flap losing left sartorius muscle on May 24. Patient was doing well postoperatively. He is anticoagulated on DOAC plus Plavix. He comes in with bleeding to the left inner thigh tonight. He has had some mild
drainage to the TAYLOR drain bloody in nature. Some increased bloody drainage today. Patient feels well. No unusual pain fever chills numbness tingling weakness to the leg. On exam patient is nontoxic in no distress. Chronic oxygen therapy. Warm
and dry. Perfusing well. Stable vital signs. The left leg is warm perfusing well. Mild swelling. Mild ecchymosis to the lower abdominal wall. The TAYLOR drain site has some mild bleeding around the drain. Minimal in nature. Some mild hardness
between the TAYLOR drain site and a superficial blood blister. No induration no warmth. No purulent drainage. Or immediately there is a small wound that is healing well. The staple incision is healing well with mild inflammatory changes but no
obvious drainage erythema or cellulitis. Impression is mild bloody drainage. However patient is clinically stable. The site appears well. There is good distal color. We have reviewed with vascular surgery. Testing including CT angiography
pending
Discharge Plan
Departure
Patient Disposition: Admit
Date of Disposition: 06/08/25
Time of Disposition: 08:15
Admit to doctor: Ganesh
Presentation/result/management discussed w/ accepting MD/DO: Vascular
Discharge Problem:
Cellulitis
Interventions
Interventions:
*Risk Screen - Suicide Last Done: 06/07/25 20:11
*General Assessment Last Done: 06/07/25 19:06
*Neglect/Abuse Screening Last Done: 06/07/25 20:11
*ED- Fall Risk Assessment Last Done: 06/07/25 20:11
*ED COVID-19 Vaccine History Last Done: 06/07/25 20:11
ED-Skin Assessment Last Done: 06/08/25 08:42
[2025-06-07 22:20] VITALS: BP 121/67
[2025-06-07 22:37] LABS: Blood Urea Nitrogen 12 mg/dl (9-20); Calcium 9.3 mg/dl (8.4-10.2); Carbon Dioxide 36 mmol/L (22-30); Chloride 106 mmol/L (98-107); Glucose 102 mg/dl (70-99); Hematocrit 38.9 % (39.0-52.0); Hemoglobin 12.6 g/dL (13.0-18.0); Mean Corp Hgb Conc. 32.4 g/dL (33.0-37.0); Mean Corpuscular Volume 94.0 fL (80.0-94.0); Nucleated Red Blood Cells % 0 % (-); Platelet Count 291 10^3/uL (130-400); Potassium 4.5 mmol/L (3.5-5.1); Red Cell Dist. Width 13.3 % (11.5-14.5); Sodium 141 mmol/L (135-145); eGFR > 60.00
[2025-06-07 22:47] LABS: INR 0.97; PT 13.2 Sec (11.4-14.6)
[2025-06-07 22:48] LABS: APTT 29 Sec (23.4-35.0)
[2025-06-08] VITALS (16 sets, daily range): BP systolic 104–145; BP diastolic 64–87; BMI 31.6; BMI 33.5
[2025-06-08] MEDS: SEROQUEL 50 MG PO ×2 (01:32→22:21)
[2025-06-08 06:17] LABS: Hemoglobin 12.6 g/dL (13.0-18.0)
--- NOTE | 2025-06-08 08:12 | EDRN ---
vascular currently at the pts bedside
--- NOTE | 2025-06-08 09:06 | CM ---
Reviewed the chart notes and spoke with the patient at the bedside. The patient was recently hospitalized (05/24-06/02) for left common femoral artery and proximal superficial femoral artery endarterectomy with patch angioplasty using bovine
pericardium and discharged to home with outpatient PT. Patient and spouse had declined offer of VN at discharge. Patient now presents for evaluation of bleeding from his surgical wound. The patient resides with his spouse in a three story home
with eight steps to enter. There is no bathroom on first level of the home. The patient has a rolling walker, wheelchair, home O2 (provider unknown), [employer], and shower chair. The patient reports no VN or SNF in the past. The patient confirmed
his pharmacy of choice is [facility] [address] [place]. CM continues to be available to patient/family and is monitoring medical plan for needs at discharge.
Plan: Discharge plans will depend on the patient's progress.
[2025-06-08] MEDS: ZOSYN 100 IV ×3 (09:41→22:19)
[2025-06-08] MEDS: VANCOCIN 540 MG IV (09:42)
--- NOTE | 2025-06-08 12:40 | CON.VAS ---
Documented by User: Gisela Jarquin MD, Resident 06/08/25 12:49
Consultation
Consultation Request
Date/Time Consultation Requested: 06/07/25; 20:35
Date/Time Consultation Performed: 06/08/25, 8:00
Requesting Provider: Francia Ramirez
Performing Provider: Fabricio Andersen
Reason for Consultation: post-op bleeding
Medical History
-
Chief Complaint: post-op wound bleeding
History of Present Illness:
Albino Yu is a 64yo M with a hx of peripheral vascular disease s/p left common femoral artery and proximal superficial femoral artery endarterectomy on 05/24/[address] Andersen presenting for evaluation of bleeding from his surgical wound.
Vascular consulted to eval wound.
Pt reports bleeding down his L leg 3 hrs prior to presentation while doing leg exercises, with post-op dressings soaked in blood. Also notes increased drainage from TAYLOR. 5cc of blood emptied earlier on day of presentation. Pt taking Eliquis and
Plavix. Denies any pain, f/c, n/v, paresthesias to leg. In ED afebrile, WBC wnl. Exam found palpable firmness surrounding the TAYLOR drain suspicious for hematoma. CT ap demonstrated '1. Left common femoral endarterectomy site is widely patent. There is
no extravasation of contrast to suggest pseudoaneurysm. 2. Left groin complex hematoma. Surgical drain is seen within the hematoma.'
Patient denies f/c overnight; feeling okay this am. Sitting up in bed, no new pain.
Allergies / Home Medications
Allergy/AdvReac Type Severity Reaction Status Date / Time
No Known Allergies Allergy Verified 06/07/25 19:06
�Medication �Instructions �Recorded �Confirmed �Type
albuterol sulfate 90 mcg/actuation 2 inh inhalation R Q6HPRN PRN SOB 05/19/25 06/08/25 History
aerosol inhaler
apixaban 5 mg tablet (Eliquis) 5 mg PO BID Blood Clot 05/19/25 06/08/25 History
Prevention/Tx
budesonide 160 mcg-glycopyr 9 2 inh inhalation R BID COPD 05/19/25 06/08/25 History
mcg-formot 4.8 mcg/actuation HFA
inhaler (Breztri Aerosphere)
cariprazine 1.5 mg capsule 1.5 mg PO HS Mental Health/Anxiety 05/19/25 06/08/25 History
(Vraylar)
ensifentrine 3 mg/2.5 mL 2.5 ml inhalation R BID COPD 05/19/25 06/08/25 History
suspension for nebulization
(Ohtuvayre)
folic acid 1 mg tablet 1 mg PO DAILY Supplement 05/19/25 06/08/25 History
furosemide 20 mg tablet 20 mg PO DAILY Fluid 05/19/25 06/08/25 History
Retention/Swelling
quetiapine 50 mg tablet 50 mg PO HS Mental Health/Anxiety 05/19/25 06/08/25 History
venlafaxine 150 mg 150 mg PO DAILY Mental 05/19/25 06/08/25 History
capsule,extended release 24 hr Health/Anxiety
albuterol sulfate 2.5 mg/3 mL 2.5 mg inhalation R BID COPD 05/20/25 06/08/25 History
(0.083 %) solution for nebulization
cholecalciferol (vitamin D3) 50 50 mcg PO DAILY Supplement 05/20/25 06/08/25 History
mcg (2,000 unit) capsule (Vitamin
D3)
pravastatin 10 mg tablet 10 mg PO DAILY High Cholesterol 05/20/25 06/08/25 History
propranolol 10 mg tablet 10 mg PO BID Tremors 05/20/25 06/08/25 History
thiamine HCl (vitamin B1) 100 mg 100 mg PO DAILY Supplement 05/20/25 06/08/25 History
tablet
clopidogrel 75 mg tablet 75 mg PO DAILY #90 tabs 05/25/25 06/08/25 Rx
Medical Marijuana 1 puff inhalation HSPRN PRN 06/08/25 06/08/25 History
ANIXETY/SLEEP
therapeutic multivitamin 1 tab PO DAILY 06/08/25 06/08/25 History
Review of Systems
-
History Source: Patient
Constitutional: Reports Other (no f/c)
Vascular: Reports Other (denies leg pain/paresthesias)
Physical Exam
Vital Signs
Temp Pulse Resp BP Pulse Ox
98.5 F 64 16 132/75 95
06/08/25 08:42 06/08/25 08:42 06/08/25 08:42 06/08/25 08:42 06/08/25 08:42
Lab Results
06/08/25 06:11
06/07/25 22:11
Physical Exam
General: Well Developed and No Apparent Distress
HEENT: Normocephalic, Anicteric and Atraumatic
Respiratory: Non Labored Respirations
Musculoskeletal: Other (L groin drain sites with some dried blood; dressing over prior site of medial drain; lateral TAYLOR drain in place w sanguinous drainage; primary incision site in L hip crease with region of surrounding blanching erythema,
incision site with evidence of some purulent drainage)
Assessment / Plan
-
Albino Yu is a 64yo M with a hx of peripheral vascular disease s/p left common femoral artery and proximal superficial femoral artery endarterectomy on 05/24/[address] Andersen presenting for evaluation of bleeding from his surgical wound.
Vascular consulted to eval wound.
Assessment: Blanching erythema around L groin incision site & appearance of incision itself c/f early infection. Exam suggests likely not deep infection, more superficial cellulitis. Favor treating early to avoid complications.
Plan:
- Start IV vanc/zosyn
- Admit to vascular surgery service
- Continue home anticoagulation (plavix, eliquis), while monitoring wound output, hgb, plt
Data Reviewed
-
CT Scan: Image Personally Visualized and interpreted and Report Reviewed by me
Labs: Labs Reviewed by me
Critical Care Time (in minutes): 35
Total Time Spent with Patient (in minutes): 10

Documented by User: Fabricio Andersen III, MD 06/08/25 13:23
Assessment / Plan
-
Albino Yu is a 64yo M with a hx of peripheral vascular disease s/p left common femoral artery and proximal superficial femoral artery endarterectomy on 05/24/[address] Andersen presenting for evaluation of bleeding from his surgical wound.
Vascular consulted to eval wound.
Assessment: Blanching erythema around L groin incision site & appearance of incision itself c/f early infection. Exam suggests likely not deep infection, more superficial cellulitis. Favor treating early to avoid complications.
Plan:
- Start IV vanc/zosyn
- Admit to vascular surgery service
- Continue home anticoagulation (plavix, eliquis), while monitoring wound output, hgb, plt
ATTENDING ADDENDUM:
This patient was seen and examined in collaboration with Dr. Jarquin. I agree with the history and physical exam as well as the assessment and plan. I have the following additions:
Well-known to me status post recent left femoral endarterectomy and prophylactic sartorius flap.
Returns to the ER with complaints of bleeding from Suresh drain exit site, recently removed
Otherwise doing very well
CTA performed and personally reviewed
Widely patent common femoral endarterectomy
No evidence of infection deep tissue
Sartorius flap in good position
Some hematoma identified around the remaining Suresh
On physical exam he is well-appearing and in no acute distress
Left groin incision is intact but there is some fibrinous exudate and minimal superficial dehiscence
No drainage
Some surrounding blanching erythema is present
No odor
Suresh drain serous
Left foot warm well-perfused
Afebrile
Normal white count
Plan to admit for intravenous antibiotics to cover superficial cellulitis
Continue home meds
Out of bed and continue physical therapy
If erythema improves with IV antibiotics we will plan to discharge home to complete a course of oral antibiotics
Fabricio Andersen III, MD
Vascular Surgery
[facility]
--- NOTE | 2025-06-08 14:25 | EDRN ---
this RN called the receiving unit and notified them that paper report was going to be tubed up
--- NOTE | 2025-06-08 14:32 | PHA.VAN.IN ---
Assessment
- Assessment
Renal Function: Appears similar to baseline
Concomitant Antimicrobials: piperacillin/tazobactam
AUC Dosing Plan
- Dosing Variables
Dosing Weight (kg): 100
Dosing CrCl (ml/min): 125
Vd coefficient (L/kg): 0.6
- Empiric Dosing
Initial / Loading Dose: 2000mg - 06/08 09:42
Maintenance Regimen: Vanc 1500mg Q12H starting at 1800
Estimated AUC (mcg*h/mL): 500
Estimated Peak (mcg*h/mL): 34
Estimated Trough (mcg/ml): 11
Estimated Half Life (H): 6.4
- Monitoring
No levels ordered at this time: consider levels in next few days
Pharmacokinetics Vancomycin I
- -
Patient Age: 64
Patient Sex: Male
Vancomycin Day #: 1
Indication: Skin And Soft Tissue
Requesting Provider: Amada Thakur
Pertinent Antimicrobial Allergies:
NKDA
Height / Weight:
Height 5 ft 10 in
Actual Weight 99.79 kg
Pertinent Past Medical History: BMI ~32
- Vital Signs / Lab Results
Temp Pulse Resp BP Pulse Ox
97.9 F 80 20 135/72 95
06/08/25 14:22 06/08/25 14:22 06/08/25 14:22 06/08/25 14:22 06/08/25 14:22
Lab Results - Hematology
06/07/25
22:11
WBC 7.7
Lab Results - Chemistry
06/07/25
22:11
BUN 12
Creatinine 0.7
--- NOTE | 2025-06-08 17:17 | PTCARENOTE ---
Patient admitted from home through [facility] emergency room for cellulitis of his left groin wound.Patient had a stent placed recently and the right groin was the access.The patient denies any pain.The are is with anibal and local erythema.The patient
is in his bed with the call ibanez in reach.
[2025-06-08] MEDS: SYMBICORT 160/4.5 MCG INHALER 2 PUFF INH (17:46)
[2025-06-08] MEDS: NON-FORMULARY ITEM 3 ML INH (17:47)
[2025-06-08] MEDS: EFFEXOR XR 150 MG PO (17:50)
[2025-06-08] MEDS: VANCOCIN 530 MG IV (17:50)
--- NOTE | 2025-06-08 20:00 | PTCARENOTE ---
Resumed care of pt sitting up in bed AAOx3. Pt with noted tremor, pt states it is a chronic tremor. HR in the 80's in NSR on the monitor. POX 96% on 2LO2 NC which is baseline for pt. + bowel, round obese abd. Pt ambulating to bathroom when needed.
Left groin site red, warm, with anibal intact. Left groin TAYLOR drain in place. Pt reports pain at tolerable level at this time. Left AC int infusing ABX as ordered. MSAS 3 at this time. NO issues to report. Will continue to monitor.
[2025-06-08] MEDS: VENTOLIN NEBULES INH (20:05)
[2025-06-08] MEDS: ELIQUIS 5 MG PO (20:12)
[2025-06-08] MEDS: INDERAL 10 MG PO (20:12)
[2025-06-08] MEDS: THIAMINE INJECTION 200 MG IV (20:12)
[2025-06-08] MEDS: NON-FORMULARY ITEM 1.5 MG PO (22:21)
[2025-06-09 03:05] VITALS: BP 135/84
[2025-06-09] MEDS: ZOSYN 100 IV ×4 (05:11→22:12)
[2025-06-09 06:00] VITALS: BMI 33.7
[2025-06-09 06:06] LABS: Hematocrit 36.5 % (39.0-52.0); Hemoglobin 11.9 g/dL (13.0-18.0); Mean Corp Hgb Conc. 32.6 g/dL (33.0-37.0); Mean Corpuscular Volume 94.1 fL (80.0-94.0); Platelet Count 281 10^3/uL (130-400); Red Cell Dist. Width 13.5 % (11.5-14.5)
[2025-06-09] MEDS: VANCOCIN 530 MG IV ×2 (06:12→17:45)
[2025-06-09 06:37] LABS: ALT (SGPT) 19 U/L (0-50); AST (SGOT) 20 U/L (17-59); Albumin 3.1 g/dl (3.5-5.0); Alkaline Phosphatase 75 U/L (38-126); Blood Urea Nitrogen 8 mg/dl (9-20); Calcium 8.8 mg/dl (8.4-10.2); Carbon Dioxide 31 mmol/L (22-30); Chloride 108 mmol/L (98-107); Estimated Creatinine Clearance > 125 ml/min; Glucose 107 mg/dl (70-99); Potassium 4.3 mmol/L (3.5-5.1); Sodium 139 mmol/L (135-145); Total Protein 5.4 g/dl (6.3-8.2); eGFR > 60.00
[2025-06-09] MEDS: NON-FORMULARY ITEM 3 ML INH (07:24)
[2025-06-09] MEDS: SPIRIVA RESPIMAT 2.5 MCG 2 PUFF INH (07:25)
[2025-06-09] MEDS: SYMBICORT 160/4.5 MCG INHALER 2 PUFF INH ×2 (07:25→18:17)
[2025-06-09] MEDS: VENTOLIN NEBULES INH (07:29)
[2025-06-09] MEDS: PRAVACHOL 10 MG PO (07:56)
[2025-06-09] MEDS: PLAVIX 75 MG PO (07:56)
[2025-06-09] MEDS: THERAGRAN 1 TABLET PO (07:56)
[2025-06-09] MEDS: LASIX 20 MG PO (07:56)
[2025-06-09] MEDS: EFFEXOR XR 150 MG PO (07:56)
[2025-06-09] MEDS: FOLVITE 1 MG PO (07:56)
[2025-06-09] MEDS: VITAMIN D3 (cholecalciferol) 50 MCG PO (07:57)
[2025-06-09] MEDS: THIAMINE INJECTION 200 MG IV ×2 (07:57→19:57)
[2025-06-09] MEDS: ELIQUIS 5 MG PO ×2 (07:57→19:57)
[2025-06-09] MEDS: INDERAL 10 MG PO ×2 (07:57→19:57)
[2025-06-09 07:58] VITALS: BP 122/75
--- NOTE | 2025-06-09 08:58 | PHA.VAN.FU ---
Vancomycin Assessment / Plan
- Assessment
Renal Function: Stable
WBC's are: WNL
In the past 24 hrs, patient has been: Afebrile
Concomitant Antimicrobials: piperacillin/tazobactam
- Dosing Plan
Continue: Vanc 1500mg Q12H
- Monitoring Plan
No level(s) ordered at this time: consider levels in next few days
- Follow Up
Pharmacy will continue to follow.
Vancomycin Follow UP
- -
Patient Age: 64
Patient Sex: Male
Vancomycin Day #: 2
Indication: Skin And Soft Tissue
Requesting Provider: Amada Thakur
Pertinent Antimicrobial Allergies:
NKDA
Height / Weight:
Height 5 ft 10 in
Actual Weight 106.685 kg
Pertinent Past Medical History: BMI ~32
- Vital Signs / Lab Results
Temp Pulse Resp BP Pulse Ox
98.7 F 69 18 122/75 94
06/09/25 07:58 06/09/25 07:58 06/09/25 07:58 06/09/25 07:58 06/09/25 08:51
Lab Results - Hematology
06/07/25 06/09/25
22:11 05:33
WBC 7.7 5.9
Lab Results - Chemistry
06/07/25 06/09/25
22:11 05:33
BUN 12 8 L
Creatinine 0.7 0.7
Estimated Creat Clear > 125
Albumin 3.1 L
--- NOTE | 2025-06-09 10:29 | W.PN.VS ---
Addendum entered and electronically signed by Edward Grove MD 06/09/25 15:29:
Seen and examined with ANJELICA Thakur. This is a late entry I saw him earlier this a.m. Agree with findings as noted below. Left groin incision site unchanged. No significant redness currently. Mild superficial dehiscence minimally with some fibrinous
exudate. No obvious purulence. No pulsatile mass. TAYLOR with somewhat sanguinous but venous appearing drainage relatively low output. Plan/as discussed and noted below.
Original Note:
Today's Communication / Plan
-
Patient seen and examined at bedside with Dr. Edward Grove M.D., below plan reviewed with attending.
Assessment/Plan
-
Assessment: 64-year-old male status post Left common femoral artery and proximal superficial femoral artery endarterectomy with patch angioplasty using bovine pericardium, intravascular lithotripsy to calcified left popliteal artery stenosis (6 mm
x 80 mm E8), balloon angioplasty and drug-eluting stent placement to left popliteal artery (6 mm x 140 mm Zilver PTX; postdilated with 6 mm angioplasty balloon), rotational muscle flap using left sartorius muscle on 05/24/[address] Fabricio Andersen
III. Presented to ED on 06/08/2025 reporting drainage from prior TAYLOR site, during ED evaluation noted to have surrounding blanching throughout around incision prompting admission for superficial cellulitis.
Plan:
Continue intravenous antibiotics for additional 24 hours, if improvement noted will likely transition to p.o. antibiotics and discharge
Continue physical therapy
Continue home regimen of inhalers/nebulizers for COPD
Continue to encourage incentive spirometry
Continue oral anticoagulation and Plavix
Subjective Data
-
Date of Service: June 09, 2025
Patient seen and examined at bedside, offers no complaints. Denies nausea, vomiting, fever, and chills. Tolerating p.o. diet. Encourage ambulation.
Objective Data
-
Vital Signs
Temp Pulse Resp BP Pulse Ox
98.7 F 69 18 122/75 94
06/09/25 07:58 06/09/25 07:58 06/09/25 07:58 06/09/25 07:58 06/09/25 09:15
Intake and Output
06/08/25 06/09/25 06/10/25
06:59 06:59 06:59
Intake Total 2220 / 2220 480 / 480
Output Total 2 / 2
Balance 2218 / 2218 480 / 480
Intake:
Oral fluids 960 / 960 480 / 480
IV piggybacks 1260 / 1260
Output:
Drain Output (Total) 2 / 2
Left Leg Kiko-Ferreira 2 / 2
Other:
How many times incontinent 1
MODERATE amount urine
Lab Results
06/09/25 05:33
06/09/25 05:33
Calcium 8.8 mg/dl (8.4-10.2) 06/09/25 05:33
Total Bilirubin 0.6 mg/dl (0.2-1.3) 06/09/25 05:33
Direct Bilirubin 0.3 mg/dl (0.0-0.4) 06/09/25 05:33
AST 20 U/L (17-59) 06/09/25 05:33
ALT 19 U/L (0-50) 06/09/25 05:33
Alkaline Phosphatase 75 U/L (38-126) 06/09/25 05:33
Total Protein 5.4 g/dl (6.3-8.2) L 06/09/25 05:33
Albumin 3.1 g/dl (3.5-5.0) L 06/09/25 05:33
Physical Exam
-
AO x 3
No tachypnea on 1 L nasal cannula, utilizes oxygen at home
No tachycardia
Abdomen soft
Groin site with staple line intact and well-approximated, no drainage noted, scant erythema noted around incision no evidence of purulent drainage or warmth
TAYLOR drain clean, dry, and intact, serosanguineous output. Prior TAYLOR drain site, which was removed in outpatient setting, clean dry intact with dressing changed by this provider.
Foot warm and pink with palpable pulse
[2025-06-09 11:26] VITALS: BP 132/78
--- NOTE | 2025-06-09 15:14 | CM ---
CM following re: discharge planning.
Reviewed pt's chart, met with pt.
PT and OT evaluations noted - outpatient T/OT recommended. pt is aware and he stated he is currently with [facility] and he will resume PT/OT sessions at [facility] upon the discharge.
The patient resides with his spouse in a three story home with eight steps to enter. There is no bathroom on first level of the home. The patient has a rolling walker, wheelchair, home O2 (provider unknown), Inogen, and shower chair.
D/C plan: home with resumptions of [facility] and family support. Spouse to transport at discharge.
CM will follow with discharge plan updates as needed.
[2025-06-09 15:20] VITALS: BP 130/69
[2025-06-09] MEDS: VENTOLIN NEBULES 2.5 MG INH (18:16)
[2025-06-09] MEDS: NON-FORMULARY ITEM 2 ML INH (18:17)
[2025-06-09 19:10] VITALS: BP 126/70
[2025-06-09] MEDS: SEROQUEL 50 MG PO (22:13)
[2025-06-09] MEDS: NON-FORMULARY ITEM 1 MG PO (22:13)
[2025-06-09 23:11] VITALS: BP 100/66
[2025-06-10 03:05] VITALS: BP 102/71
[2025-06-10] MEDS: ZOSYN 100 IV ×2 (05:30→10:16)
[2025-06-10 06:00] VITALS: BMI 33.3
[2025-06-10 06:20] LABS: Hematocrit 37.0 % (39.0-52.0); Hemoglobin 11.7 g/dL (13.0-18.0); Mean Corp Hgb Conc. 31.6 g/dL (33.0-37.0); Mean Corpuscular Volume 96.1 fL (80.0-94.0); Platelet Count 247 10^3/uL (130-400); Red Cell Dist. Width 13.6 % (11.5-14.5)
[2025-06-10] MEDS: VANCOCIN 530 MG IV (06:31)
[2025-06-10 07:01] LABS: Blood Urea Nitrogen 8 mg/dl (9-20); Calcium 9.2 mg/dl (8.4-10.2); Carbon Dioxide 35 mmol/L (22-30); Chloride 106 mmol/L (98-107); Estimated Creatinine Clearance 115 ml/min; Glucose 102 mg/dl (70-99); Potassium 4.0 mmol/L (3.5-5.1); Sodium 138 mmol/L (135-145); eGFR > 60.00
[2025-06-10 07:10] VITALS: BP 131/73
[2025-06-10] MEDS: NON-FORMULARY ITEM 2.5 ML INH (07:32)
[2025-06-10] MEDS: SPIRIVA RESPIMAT 2.5 MCG 2 PUFF INH (07:33)
[2025-06-10] MEDS: SYMBICORT 160/4.5 MCG INHALER 2 PUFF INH (07:33)
[2025-06-10] MEDS: VENTOLIN NEBULES INH (07:34)
--- NOTE | 2025-06-10 07:42 | W.PN.VS ---
Addendum entered and electronically signed by Edward Grove MD 06/10/25 16:25:
Close office follow-up within a week.
Addendum entered and electronically signed by Edward Grove MD 06/10/25 16:25:
Seen and examined with ANJELICA Thakur. Agree with findings as noted below. Examined left groin. No significant redness. Overall stable. Mild superficial dehiscence. No drainage. TAYLOR as noted. Plan/as discussed and noted below. I think it is
reasonable to send him home at this point with p.o. antibiotics.
Original Note:
Today's Communication / Plan
-
Patient seen and examined at bedside with Dr. Edward Grove M.D., below plan reviewed with attending.
Assessment/Plan
-
Assessment: 64-year-old male status post Left common femoral artery and proximal superficial femoral artery endarterectomy with patch angioplasty using bovine pericardium, intravascular lithotripsy to calcified left popliteal artery stenosis (6 mm
x 80 mm E8), balloon angioplasty and drug-eluting stent placement to left popliteal artery (6 mm x 140 mm Zilver PTX; postdilated with 6 mm angioplasty balloon), rotational muscle flap using left sartorius muscle on 05/24/[address] Fabricio Andersen
III. Presented to ED on 06/08/2025 reporting drainage from prior TAYLOR site, during ED evaluation noted to have surrounding blanching throughout around incision prompting admission for superficial cellulitis.
Plan:
Continue intravenous antibiotics while inpatient, will transition to p.o. upon discharge
Continue physical therapy
Continue home regimen of inhalers/nebulizers for COPD
Continue to encourage incentive spirometry
Continue oral anticoagulation and Plavix
Likely discharge today
Subjective Data
-
Date of Service: June 10, 2025
Patient seen and examined at bedside, offers no complaints. Denies nausea, vomiting, fever, malaise, lethargy, and chills. Reports overall he feels well.
Objective Data
-
Vital Signs
Temp Pulse Resp BP Pulse Ox
98.2 F 66 17 102/71 97
06/10/25 03:05 06/10/25 03:05 06/10/25 03:05 06/10/25 03:05 06/10/25 03:05
Intake and Output
06/09/25 06/10/25 06/11/25
06:59 06:59 06:59
Intake Total 2220 / 2220 3420 / 3420
Output Total
Balance 2218 / 2218 3390 / 3390 -10
Intake:
Oral fluids 960 / 960 2160 / 2160
IV fluids (Total) 1260 / 1260
IV piggybacks 1260 / 1260
Output:
Drain Output (Total)
Left Leg Kiko-Ferreira
Other:
Number of approximated MODERATE 2
amounts of urine
How many times incontinent 2
MODERATE amount urine
Lab Results
06/10/25 06:05
06/10/25 06:05
Calcium 9.2 mg/dl (8.4-10.2) 06/10/25 06:05
Total Bilirubin 0.6 mg/dl (0.2-1.3) 06/09/25 05:33
Direct Bilirubin 0.3 mg/dl (0.0-0.4) 06/09/25 05:33
AST 20 U/L (17-59) 06/09/25 05:33
ALT 19 U/L (0-50) 06/09/25 05:33
Alkaline Phosphatase 75 U/L (38-126) 06/09/25 05:33
Total Protein 5.4 g/dl (6.3-8.2) L 06/09/25 05:33
Albumin 3.1 g/dl (3.5-5.0) L 06/09/25 05:33
Physical Exam
-
No apparent distress, resting bed comfortably, afebrile
No tachycardia
No dyspnea on room air
ABD rotund, nondistended, nontender
Left groin with vastly improved erythema, suture/staple line intact and well-approximated, no evidence of drainage, prior TAYLOR site CDI
TAYLOR drain with serosanguineous output, clean, dry, and intact site skin
Bilateral feet warm
[2025-06-10] MEDS: FOLVITE 1 MG PO (08:45)
[2025-06-10] MEDS: THERAGRAN 1 TABLET PO (08:45)
[2025-06-10] MEDS: INDERAL 10 MG PO (08:46)
[2025-06-10] MEDS: PRAVACHOL 10 MG PO (08:46)
[2025-06-10] MEDS: VITAMIN D3 (cholecalciferol) 50 MCG PO (08:46)
[2025-06-10] MEDS: EFFEXOR XR 150 MG PO (08:46)
[2025-06-10] MEDS: THIAMINE INJECTION 200 MG IV (08:46)
[2025-06-10] MEDS: LASIX 20 MG PO (08:46)
[2025-06-10] MEDS: PLAVIX 75 MG PO (08:46)
[2025-06-10] MEDS: ELIQUIS 5 MG PO (08:46)
[2025-06-10 11:39] VITALS: BP 138/69
--- NOTE | 2025-06-10 12:34 | W.DS.TRANS ---
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
-
Discharge Instructions:
Sleep Apnea Risk Intermediate
Discharge Diagnosis/Procedures Superficial left groin cellulitis
Diet As tolerated
Activity No strenuous activity
Driving Restrictions Not until seen by your Dr
Bathing Restrictions OK to Shower
Wound Care We advise that you leave a large gauze pad in
between the folds of your left groin over staple
site to wick away moisture, change this twice a
day or more if wet. You can secure with paper
tape as needed. Continue your drain care for TAYLOR
drain that remains. For the site of prior TAYLOR
drain you can cover with simple gauze and paper
tape, if no drainage is present can leave open
to air.
Instructions:
Stand-Alone Forms: Vascular Surg Discharge Instr
Changes to Home Medications: Yes
Discharge Medications:
DC Medications w/original date entered in [facility]
albuterol sulfate 90 mcg/actuation aerosol inhaler 2 inh inhalation R Q6HPRN PRN SOB 05/19/25
apixaban 5 mg tablet (Eliquis) 5 mg PO BID Blood Clot Prevention/Tx 05/19/25
budesonide 160 mcg-glycopyr 9 mcg-formot 4.8 mcg/actuation HFA inhaler (Breztri Aerosphere) 2 inh inhalation R BID COPD 05/19/25
cariprazine 1.5 mg capsule (Vraylar) 1.5 mg PO HS Mental Health/Anxiety 05/19/25
ensifentrine 3 mg/2.5 mL suspension for nebulization (Ohtuvayre) 2.5 ml inhalation R BID COPD 05/19/25
folic acid 1 mg tablet 1 mg PO DAILY Supplement 05/19/25
furosemide 20 mg tablet 20 mg PO DAILY Fluid Retention/Swelling 05/19/25
quetiapine 50 mg tablet 50 mg PO HS Mental Health/Anxiety 05/19/25
venlafaxine 150 mg capsule,extended release 24 hr 150 mg PO DAILY Mental Health/Anxiety 05/19/25
albuterol sulfate 2.5 mg/3 mL (0.083 %) solution for nebulization 2.5 mg inhalation R BID COPD 05/20/25
cholecalciferol (vitamin D3) 50 mcg (2,000 unit) capsule (Vitamin D3) 50 mcg PO DAILY Supplement 05/20/25
pravastatin 10 mg tablet 10 mg PO DAILY High Cholesterol 05/20/25
propranolol 10 mg tablet 10 mg PO BID Tremors 05/20/25
thiamine HCl (vitamin B1) 100 mg tablet 100 mg PO DAILY Supplement 05/20/25
clopidogrel 75 mg tablet 75 mg PO DAILY #90 tabs 05/25/25
Medical Marijuana 1 puff inhalation HSPRN PRN ANIXETY/SLEEP 06/08/25
therapeutic multivitamin 1 tab PO DAILY Supplement 06/08/25
cephalexin 500 mg capsule 500 mg PO BID 7 days #14 caps 06/10/25
Home Medication Changes
Added:
cephalexin 500 mg capsule 500 mg PO BID 7 days #14 caps 06/10/25
Pending Results: No
--- NOTE | 2025-06-10 12:49 | CM ---
CM following re: discharge planning.
Reviewed pt's chart, met with pt.
Discharge order noted. Pt is aware, expressed his agreement and pt stated his spouse will transport home.
PT and OT recommended outpatient T/OT recommended. Pt is aware and he stated he is currently with [facility] and he will resume PT/OT sessions at [facility] upon the discharge.
The patient resides with his spouse in a three story home with eight steps to enter. There is no bathroom on first level of the home. The patient has a rolling walker, wheelchair, home O2 (provider unknown), Inogen, and shower chair.
D/C plan: home with resumptions of [facility] and family support. Spouse to transport.
[2025-06-10 15:05] VITALS: BP 141/79
== END 2025-06-10 17:15 | disposition home or self-care (01) | DRG 863 ==
LOC: 2 SOUTH 09:37
PROVIDERS: Nurse Practitioner; Physician Assistant; ADMITTING PHYSICIAN Surgery Vascular Surgery; EMERGENCY PHYSICIAN Emergency Medicine; FAMILY PHYSICIAN Student in an Organized Health Care Education/Training Program
DX: T81.41XA Infection following a procedure, superficial incisional surgical site, initial encounter (principal); L03.314 Cellulitis of groin; Y83.8 Other surgical procedures as the cause of abnormal reaction of the patient, or of later complication, without mention of misadventure at the time of the procedure; J44.9 Chronic obstructive pulmonary disease, unspecified; I25.10 Atherosclerotic heart disease of native coronary artery without angina pectoris; Y92.9 Unspecified place or not applicable; Z79.01 Long term (current) use of anticoagulants; Z79.51 Long term (current) use of inhaled steroids; Z79.02 Long term (current) use of antithrombotics/antiplatelets; Z95.820 Peripheral vascular angioplasty status with implants and grafts
CPT/HCPCS: 75635; 80048; 80053; 82248; 85018; 85025; 85027; 85610; 85730; 94640; 97162; Q9967

== ENCOUNTER → 2025-09-01 15:17 | Outpatient (REF) | payer OTHER, SELFPAY | LOC: RAD 15:17 | PROVIDERS: ATTENDING PHYSICIAN Surgery Vascular Surgery; FAMILY PHYSICIAN Family Medicine | DX: I73.9 Peripheral vascular disease, unspecified (principal) | CPT/HCPCS: 93922; 93925 ==